=== PATIENT | female | born 1955 | race Caucasian/White ===

== ENCOUNTER 2023-03-17 13:08 | Outpatient (OUT) | payer MEDICARE, OTHER, SELFPAY ==
[2023-03-17 14:21] LABS: Anion Gap 11.4; BUN Creatinine Ratio 23.2; Calcium 9.6 mg/dL (8.5-10.1); Carbon Dioxide 29.8 mmol/L (21.0-32.0); Chloride 97 mmol/L (98-107); Estimated GFR (African America >60 (>=60); Estimated GFR (Non-African Ame >60 (>=60); Glucose 90 mg/dL (74-106); Potassium 4.2 mmol/L (3.5-5.1); Sodium 134 mmol/L (136-145)
== END 2023-03-17 13:09 | disposition home or self-care (01) ==
LOC: LAB 13:12
PROVIDERS: PCP Internal Medicine
DX: I10 Essential (primary) hypertension (principal)
CPT/HCPCS: 36415; 80048

== ENCOUNTER 2023-05-24 16:35 | Outpatient (OUT) | payer MEDICARE, OTHER, SELFPAY ==
[2023-05-24 17:02] LABS: Anion Gap 9.7; BUN Creatinine Ratio 15.6; Calcium 9.8 mg/dL (8.5-10.1); Carbon Dioxide 32.3 mmol/L (21.0-32.0); Chloride 96 mmol/L (98-107); Estimated GFR (African America >60 (>=60); Estimated GFR (Non-African Ame >60 (>=60); Glucose 101 mg/dL (74-106); Sodium 134 mmol/L (136-145)
== END 2023-05-24 16:36 | disposition home or self-care (01) ==
PROVIDERS: PCP Internal Medicine
DX: I10 Essential (primary) hypertension (principal)
CPT/HCPCS: 36415; 80048

== ENCOUNTER 2023-12-26 13:20 | Outpatient (OUT) | payer MEDICARE, OTHER, SELFPAY ==
--- NOTE | 2023-12-26 13:22 | MM_ITS ---
Patient Name: RAÚL SAMANIEGO MR#: [id number] : 1955 Exam Date: 12/26/2023 Ordering Doctor: DR MISHA DINH M.D. RADIOLOGY REPORT PROCEDURE: MM TOMOSYNTHESIS SCREENING BI COMPARISON: MG MAMM SCREEN 3D ADAM CAD, 01/11/2022. MG MAMM SCREEN ADAM W CAD, 09/02/2020. MG MAMM SCREEN ADAM W CAD, 08/14/2019. MG MAMM ADAM SCRN W CAD DIG, 03/27/2013. INDICATIONS: Screening Calculator Name NCI Breast Cancer Risk Assessment Tool 5 Year Breast Cancer Risk 1.90% Lifetime Breast Cancer Risk 6.70% Personal Breast Cancer No Personal Ovarian Cancer No Treatments None Family Cancers Grandmother-maternal with lymphoma cancer at age 45; Grandfather-paternal with stomach cancer at age 50; Brother with skin cancer at age 62; Brother with colon cancer at age 61; Mother with esophageal cancer at age 82. LOCATION: [facility] BREAST COMPOSITION: There are scattered areas of fibroglandular density. FINDINGS: DIAGNOSTIC CATEGORY 2--BENIGN FINDING: RIGHT BREAST: No significant suspicious finding. Scattered benign-appearing lymph nodes are present. No significant change has occurred. LEFT BREAST: No significant suspicious finding. Scattered benign-appearing lymph nodes are present. No significant change has occurred. RECOMMENDATIONS: ROUTINE MAMMOGRAM AND CLINICAL EVALUATION IN 12 MONTHS. PLEASE NOTE: A NORMAL MAMMOGRAM DOES NOT EXCLUDE THE POSSIBILITY OF BREAST CANCER. A CLINICALLY SUSPICIOUS PALPABLE LUMP SHOULD BE BIOPSIED. Dictated by: Johan Garrido M.D. on 12/29/2023 at 13:41 Approved by: Johan Garrido M.D. on 12/29/2023 at 13:51
== END 2023-12-26 13:21 | disposition home or self-care (01) ==
LOC: MAMMO 13:20
PROVIDERS: PCP Internal Medicine; Visit Provider Internal Medicine
DX: Z12.31 Encounter for screening mammogram for malignant neoplasm of breast (principal); Z80.7 Family history of other malignant neoplasms of lymphoid, hematopoietic and related tissues; Z80.0 Family history of malignant neoplasm of digestive organs; Z80.8 Family history of malignant neoplasm of other organs or systems
CPT/HCPCS: 77063; 77067

== ENCOUNTER 2025-01-21 13:43 | Outpatient (OUT) | payer OTHER, SELFPAY ==
--- OUTSIDE RECORDS SUMMARY | 2025-01-16 08:30 | XMS_ITS | Encounter Summary ---
Author Organization [facility] Address [address] [facility] [place] [address] Care Team Providers Care Aviation Engineer Name Role Phone Johnnie Alex MD Primary Care Provider [phone] Johnnie Alex MD Unavailable [phone] Reason for Visit * Reason Comments Medicare Annual Wellness Visit Subsequen t Med Refill Lorazepam,mobic--DM tono Encounter Details Date Type Department Care Team (Late st Contact Info) Description 01/16/2025 8:30 AM EDT Office Visit [facility] [address] [facility] [address] [place] [address] Johnnie Alex MD [address] [facility] 110 [place] [address] Routine general medical examination at health care facility (Primary Dx); ACP (advance care planning); Encounter for screening mammogram for breast cancer; 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 No 04/13/2023 Within the last year, have y ou been humiliated or emotionally abused in other ways by your partner or ex-partner? No Within the last year, have y ou been kicked, hit, slapped, or otherwise physically hurt by your partner or ex-partner? No 04/13/2023 Within the last year, have y ou been raped or forced to have any kind of sexual activity by your partner or ex-partner? No 04/13/2023 Social Connection and Isolat ion Panel [NHANES] Answer Date Recorded In a typical week, how many times do you talk on the phone with family, friends, or neighbors? More than three times a week 04/13/2023 How often do you get togethe r with friends or relatives? Three times a week 04/13/2023 How often do you attend chur or catholic services? Never 04/13/2023 Do you belong to any clubs o r organizations such as spiritism groups, unions, fraternal or athletic groups, or school groups? Yes 04/13/2023 How often do you attend meet ings of the clubs or organizations you belong to? More than 4 times per year 04/13/2023 Are you , , di vorced, , never , or living with a partner? 04/13/2023 AUDIT-C Answer Date Recorded Q1: How often do you have a drink containing alc ohol? 2-4 times a month 04/13/2023 Q2: How many drinks containi ng alcohol do you have on a typical day when you are drinking? 1 or 2 04/13/2023 Q3: How often do you have si x or more drinks on one occasion? Never 04/13/2023 Overall Financial Resource Strain (CARDIA) Answe r Date Recorded How hard is it for you to pa y for the very basics like food, housing, medical care, and heating? Not hard at all 04/13/2023 PHQ-2 Answer Date Recorded Patient Health Questionnaire-2 Score 0 01/16/2025 [facility] [place] of Occupat ional Health - Occupational Stress Questionnaire Answer Date Recorded Do you feel stress - tense, restless, nervous, or anxious, or unable to sleep at night because your mind is troubled all the time - these days? Only a little 04/13/2023 Exercise Vital Sign Answer Date Recorde d On average, how many days pe r week do you engage in moderate to strenuous exercise (like a brisk walk)? 4 days 04/13/2023 On average, how many minutes do you engage in exercise at this level? 40 min 04/13/2023 Hunger Vital Sign Answer Date Recorded Within the past 12 months, y ou worried that your food would run out before you got the money to buy more. Never true 04/13/20 23 Within the past 12 months, t he food you bought just didn't last and you didn't have money to get more. Never true 04/13/2023 PRAPARE - Transportation Answer Date Re corded In the past 12 months, has l ack of transportation kept you from medical appointments or from getting medications? No 03/26 In the past 12 months, has l ack of transportation kept you from meetings, work, or from getting things needed for daily living? No 04/13/2023 Housing Stability Vital Sign Answer Sebastian e Recorded In the last 12 months, was t here a time when you were not able to pay the mortgage or rent on time? No 04/13/2023 In the last 12 months, how many places have you lived? 1 04/13/2023 In the last 12 months, was t here a time when you did not have a steady place to sleep or slept in a residential (including now)? No 04/13/2023 Comments Unknown Sex and Gender Information Value Date Recorded Sex Assigned at Not on file Legal Sex Female 6:56 PM EDT Gender Identity Not on file Sexual Orientation Not on file documented as of this encounter Last Filed Vital Signs Vital Sign Reading Time Taken Comments Blood Pressure 128/76 01/16/2025 8:22 AM EDT Pulse 60 01/16/2025 8:22 AM EDT Temperature - - Respiratory Rate - - Oxygen Saturation 98% 01/16/2025 8:22 AM EDT Inhaled Oxygen Concentration - - Weight 77.1 kg (170 lb) 01/16/2025 8:22 AM EDT Height 170.2 cm (5' 7 ) 01/16/2025 8:22 AM EDT Body Mass Index 26.63 01/16/2025 8:22 AM EDT documented in this encounter Functional Status * Over the past 2 weeks, how often have you been bothered by any of the following problems? Question Answer Date of Assessment Author Little interest or pleasure in doing things Not at all 01/16/2025 8:00 AM Kamar Little LP N Feeling down, depressed, or hopeless Not at all 01/16/2025 8:00 AM Kamar Little LP N Patient Health Questionnaire -2 Score 0 01/16/2025 8:00 AM Kamar Little LP N documented as of this encounter Progress Notes * Johnnie Alex MD - 01/16/2025 8:30 AM EDT Images from the original note were not included. HPI Med Refill Additional comments: Lorazepam,mobic--DM tono Last edited by Kamar Roger LPN on 01/16/2025 8:38 AM. Subjective : Chief Complaint: Savi Love is an 70 y.o. female here for an annual wellness visit. I have reviewed and reconciled the history and medication list with the patient today. Current Outpatient Medications Medication Sig Dispense Refill aspirin 81 MG EC tablet Take 81 mg by mouth in the morning. atenolol (Tenormin) 50 MG tablet TAKE 1 TABLET BY MOUTH ONCE DAILY 90 tablet 3 atorvastatin (Lipitor) 20 MG tablet TAKE 1 TABLET BY MOUTH DAILY 30 tablet 11 B Complex Vitamins (vitamin B complex) tablet Take by mouth Daily. calcium citrate 600 mg and vitamin D3 (Citrical & Minerals + Vit D) 600-200 MG- UNIT tablet Take1 tablet by mouth in the morning. Cranberry 500 MG tablet Daily. losartan (Cozaar) 100 MG tablet Take 100 mg by mouth in the morning. magnesium oxide (Mag-Ox) 400 mg tablet Take 400 mg by mouth in the morning and 400 mg before bedtime. melatonin 10 MG tablet Take 10 mg by mouth as needed at bedtime Multiple Vitamins-Minerals (Multivitamin Women 50+) tablet Take 1 tablet by mouth Daily potassium chloride CR (Klor-Con M20) 20 MEQ ER tablet Take 2 tablets by mouth Daily triamterene-hydrochlorothiazide (Maxzide) 75-50 MG tablet Take 1 tablet by mouth in the morning. zinc gluconate 50 MG tablet Take by mouth Daily. LORazepam (Ativan) 0.5 MG tablet Take 1 tablet (0.5 mg) by mouth Daily as needed for anxiety 30 tablet 2 meloxicam (Mobic) 15 MG tablet Take 1 tablet (15 mg) by mouth in the morning. 90 tablet 1 No current facility-administered medications for this visit. Review of Systems List of current healthcare providers: Patient Care Team: Johnnie Alex MD as PCP - General (Internal Medicine) Johnnie Alex MD as PCP - [facility]oted Medicare Annual Visit Over the past 2 weeks, how often have you been bothered by any of the following problems? Little interest or pleasure in doing things: Not at all Feeling down, depressed, or hopeless: Not at all Patient Health Questionnaire-2 Score: 0 Randolph Fall Risk History of Falling, Immediate or Within 3 Months: No Secondary Diagnosis: No Ambulatory Aid: Walks without aid/bedrest/nurse assist Health Risk Assessment Form Do you need help eating, bathing, using the toilet, dressing, or getting around your home?: No Can you prepare your own meals?: Yes Can you do your own housework without help?: Yes Can you shop for groceries or clothes without help?: Yes Do you exercise for about 20 minutes 3 or more days a week?: Yes How confident are you that you can control and manage most of your health problems?: Very confident Can you mange your money, credit cards and accounts, pay bills and taxes?: Yes Cognitive Screening Three Word Registration: Apple, Watch, Shanna Clock Drawing: Normal Clock - 2 Three Word Recall: All 3 words correct - 3 Total Score (0-5 Points): 5 Pain Assessment Pain Score: 3 Advance Care Planning Do you have a living will?: Yes Do you have a medical power of incinerator plant laborer?: Yes Who is your medical power of incinerator plant laborer?: Objective : BP 128/76 Pulse 60 Ht 5' 7 Wt 170 lb SpO2 98% BMI 26.63 kg/m?? No results found. Physical Exam Constitutional: Appearance: Normal appearance. HENT: Head: Normocephalic and atraumatic. Cardiovascular: Rate and Rhythm: Normal rate and regular rhythm. Heart sounds: Normal heart sounds. No murmur heard. Pulmonary: Effort: Pulmonary effort is normal. Breath sounds: Normal breath sounds. No wheezing, rhonchi or rales. Abdominal: General: Abdomen is flat. Bowel sounds are normal. There is no distension. Tenderness: There is no abdominal tenderness. Musculoskeletal: Right lower leg: No edema. Left lower leg: No edema. Neurological: Mental Status: She is alert. Psychiatric: Mood and Affect: Mood normal. Thought Content: Thought content normal. 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 Orders Placed This Encounter Procedures TSH W/REFLEX TO FT4 Standing Status: Future Number of Occurrences: 1 Expected Date: 01/16/2025 Expiration Date: 01/16/2026 Print requisition?: No Lipid panel Standing Status: Future Number of Occurrences: 1 Expected Date: 01/16/2025 Expiration Date: 01/16/2026 Electronically signed by Johnnie Alex MD on January 16, 2025 documented in this encounter Miscellaneous Notes * Addendum Note - Kamar Roger LPN - 01/16/2025 8:30 AM EDTAddended by: KAMAR ROGER on: 01/16/2025 09:24 AM Modules accepted: Orders documented in this encounter Plan of Treatment Upcoming Encounters Date Type Department Care Team (Late st Contact Info) Description 01/16/2026 1:00 PM EDT Office Visit [facility] [address] [facility] 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) Expected: 01/16/2025 (Approximate), Expires: 01/16/2026 Lipid panel Lab Routine Pure hypercholesterolemia Expected: 01/16/2025 (Approximate), Expires: 01/16/2026 Bilateral screening mammogram Imaging Routine Encounter for screening mammogram for breast cancer Expected: 01/16/2025 (Approximate), Expires: 03/18/2026 documented as of this encounter Visit Diagnoses Diagnosis Routine general medical examination at health care facility- Primary Routine general medical examination at a health care facility ACP (advance care planning) Other specified counseling Encounter for screening mammogram for breast cancer 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) Pure hypercholesterolemia Pure hypercholesterolemia Anxiety Anxiety state, unspecified Osteoarthritis of both knees, unspecified osteoarthritis type documented in this encounter Additional Health Concerns Assessment Noted Time PHQ-9 Depression Total Score: 0 01/16/20 24 8:00 AM EDT documented as of this encounter Care Teams Aviation Engineer Relationship Specialty Start Date End Date Johnnie Alex MD [address] [facility] [address] [place] [address] PCP - General Internal Medicine 01/10/23 Johnnie Alex MD [address] [facility] [address] [place] [address] PCP - Devoted 07/25/24 documented as of this encounter
--- OUTSIDE RECORDS SUMMARY | 2025-01-21 13:45 | XMS_ITS | Encounter Summary ---
Author Organization [facility] Address [address] [place] [address] Care Team Providers Care Cattyman Name Role Phone Johnnie Alex MD Unavailable [phone] Johnnie Alex MD Primary Care Provider [phone] Tuesday, Shanti RICKETTS Unavailable [phone] Johnnie Alex MD Unavailable [phone] Johnnie Alex MD Unavailable [phone] Encounter Details Date Type Department Care Team (Late st Contact Info) Description 12/28/2022 Abstract [facility] [address] [facility] [address] [place] [phone] Johnnie Alex MD [address] [facility] 110 [place] [address] Social History Tobacco Use Types Packs/Day Years Used Date Smoking Tobacco: Never Assessed Comments Unknown Sex and Gender Information Value Date Recorded Sex Assigned at Not on file Legal Sex Female 6:56 PM EDT Gender Identity Not on file Sexual Orientation Not on file documented as of this encounter Plan of Treatment Upcoming Encounters Date Type Department Care Team (Late st Contact Info) Description 01/16/2026 1:00 PM EDT Office Visit [facility] [address] [facility] [address] [place] [address] Johnnie Alex MD [address] [facility] 110 [place] [address] documented as of this encounter Visit Diagnoses Not on filedocumented in this encounter Care Teams Cattyman Relationship Specialty Start Date End Date Johnnie Alex MD [address] [facility] [address] [place] [address] PCP - ACO Reach 12/16/22 08/30/24 Johnnie Alex MD [address] [facility] [address] [place] [address] PCP - General Internal Medicine 01/10/23 Johnnie Alex MD [address] [facility] [address] [place] [address] PCP - Devoted 07/25/24 Johnnie Alex MD [address] [facility] [address] [place] [address] PCP - ACO Reach 09/07/24 10/25/24Tuesday, JAMARCUS Moser [address] [place] [address] Licensed Practical Nurse Family Medicine 01/16/24 02/14/24 documented as of this encounter
--- OUTSIDE RECORDS SUMMARY | 2025-01-21 13:45 | XMS_ITS | Encounter Summary ---
Author Organization [facility] Address [address] [facility] [place] [address] Care Team Providers Care Front Attendant Name Role Phone Johnnie Alex MD Primary Care Provider [phone] Johnnie Alex MD Unavailable [phone] Encounter Details Date Type Department Care Team (Late st Contact Info) Description 01/16/2025 Bamboo flowsheet [facility] [address] [facility] [address] [place] [id number] Johnnie Alex MD [address] [facility] [address] [place] [address] Social History Tobacco Use Types Packs/Day Years [...] 04/13/2023 How often do you attend chur ch or mormonism services? Never 04/13/2023 Do you belong to any clubs o r organizations such as restoration groups, unions, fraternal or athletic groups, or [...] Recorded Patient Health Questionnaire-2 Score 0 01/16/2025 [facility] of Occupat ional Health - Occupational Stress [...] place to sleep or slept in a fdc (including now)? No 04/13/2023 Comments Unknown Sex and Gender Information Value Date Recorded Sex Assigned at Not on file Legal Sex Female 6:56 PM EDT Gender Identity Not on file Sexual Orientation Not on file documented as of this encounter Functional Status * Over the past 2 weeks, how often have you been bothered by any of the following problems? Question Answer Date of Assessment Author Little interest or pleasure in doing things Not at all 01/16/2025 8:00 AM EDT Isis Plasencia LP N Feeling down, depressed, or hopeless Not at all 01/16/2025 8:00 AM EDT Isis Plasencia LP N Patient Health Questionnaire -2 Score 0 01/16/2025 8:00 AM EDT Isis Plasencia LP N documented as of this encounter Plan of Treatment Upcoming Encounters Date Type Department Care Team (Late st Contact Info) Description 01/16/2026 1:00 PM EDT Office Visit [facility] 112 [facility] 110 [place] [address] Johnnie Alex MD 112 [facility] 110 [place] [address] documented as of this encounter Visit Diagnoses Not on filedocumented in this encounter Additional Health Concerns Assessment Noted Time PHQ-9 Depression Total Score: 0 01/16/20 24 8:00 AM EDT documented as of this encounter Care Teams Front Attendant Relationship Specialty Start Date End Date Johnnie Alex MD [address] [facility] 110 [place] [address] PCP - General Internal Medicine 01/10/23 Johnnie Alex MD [address] [facility] 110 [place] [address] PCP - Devoted 07/25/24 documented as of this encounter
--- OUTSIDE RECORDS SUMMARY | 2025-01-21 13:45 | XMS_ITS | Encounter Summary ---
Author Organization [facility] Address [address] [facility] [place] [address] Care Team Providers Care Garden Consultant Name Role Phone Johnnie Alex MD Unavailable [phone] Johnnie Alex MD Primary Care Provider [phone] Johnnie Alex MD Unavailable [phone] Johnnie Alex MD Unavailable [phone] Encounter Details Date Type Department Care Team (Late st Contact Info) Description 05/24/2024 Abstract [facility] [address] [facility] 110 [place] [address] Johnnie Alex MD 112 [facility] 110 [place] [address] Social History Tobacco Use Types Packs/Day Years [...] often do you attend chur ch or muslim services? Never 04/13/2023 Do you belong to any clubs o r organizations such as confucianist groups, unions, fraternal or athletic groups, or [...] Date Recorded Patient Health Questionnaire-2 Score 0 01/16/2024 [facility] - Occupational Stress Questionnaire Answer Date [...] money to buy more. Never true 04/13/20 Within the past 12 months, t he [...] place to sleep or slept in a snf (including now)? No 04/13/2023 Comments Unknown Sex and Gender Information Value Date Recorded Sex Assigned at Not on file Legal Sex Female 6:56 PM EDT Gender Identity Not on file Sexual Orientation Not on file documented as of this encounter Plan of Treatment Upcoming Encounters Date Type Department Care Team (Late st Contact Info) Description 01/16/2026 1:00 PM EDT Office Visit [facility] [address] [facility] 110 [place] [address] Johnnie Alex MD [address] [facility] [address] [place] [address] documented as of this encounter Visit Diagnoses Not on filedocumented in this encounter Additional Health Concerns Assessment Noted Time PHQ-9 Depression Total Score: 0 01/16/20 8:00 AM EDT documented as of this encounter Care Teams Garden Consultant Relationship Specialty Start Date End Date Johnnie Alex MD [address] [facility] [address] [place] [address] PCP - ACO Reach 12/16/22 08/30/24 Johnnie Alex MD [address] [facility] [address] [place] [address] PCP - General Internal Medicine 01/10/23 Johnnie Alex MD [address] [facility] [address] [place] [address] PCP - Devoted 07/25/24 Johnnie Alex MD [address] [facility] [address] PCP - ACO Reach 09/07/24 10/25/24 documented as of this encounter
--- OUTSIDE RECORDS SUMMARY | 2025-01-21 13:45 | XMS_ITS | Encounter Summary ---
Author Organization [facility] Address [address] [facility] [place] [address] Care Team Providers Care Bark Grinder Name Role Phone Johnnie Alex MD Unavailable [phone] Johnnie Alex MD Primary Care Provider Tuesday, Shanti RICKETTS Unavailable [phone] Johnnie Alex MD Unavailable [phone] Johnnie Alex MD Unavailable [phone] Encounter Details Date Type Department Care Team (Late st Contact Info) Description 12/27/2022 Abstract [facility] [address] [facility] [address] [place] [phone] Johnnie Alex MD [address] [facility] 110 [place] [address] Social History Tobacco Use Types Packs/Day Years [...] Visit [facility] [address] [facility] [address] [place] [address] Johnnie Alex MD [address] [facility] 110 [place] [address] documented as of this encounter Visit Diagnoses Not on filedocumented in this encounter Care Teams Bark Grinder Relationship Specialty Start Date End Date Johnnie Alex MD [address] [facility] [address] [place] [address] PCP - ACO Reach 12/16/22 08/30/24 Johnnie Alex MD [address] [facility] [address] [place] [address] PCP - General Internal Medicine 01/10/23 Johnnie Alex MD [address] [facility] [address] [place] [address] PCP - Devoted 07/25/24 Johnnie Alex MD [address] [facility] [address] [place] [address] PCP - ACO Reach 09/07/24 10/25/24Tuesday, JAMARCUS Moser [address] [place] [address] Licensed Practical Nurse Family Medicine 01/16/24 02/14/24 documented as of this encounter
--- OUTSIDE RECORDS SUMMARY | 2025-01-21 13:45 | XMS_ITS | Clinical Summary ---
Author Organization [facility] Address [address] [place] [address] Phone Care Team Providers Care Rn Burn Name Role Phone Johnnie Alex MD Primary Care Provider [phone] Allergies Active Allergy Reactions Criticality Noted Date Comments Adhesive Tape-Silicones Dermatitis Medium 05/30/2023 Sulfa (Sulfonamide Antibiotics) Hives 09/2022 Medications aspirin 81 mg EC tablet Take 1 tablet (81 mg) by mouth once daily. Active calcium carbonate (Oscal) 500 mg calcium (1,250 mg) tablet Take 1 tablet (1,250 mg) by mouth 2 times daily (morning and late afternoon). Active cranberry 500 mg capsule Take 1 capsule by mouth every other day. Active LORazepam (Ativan) 0.5 mg tablet Take 1 tablet (0.5 mg) by mouth once daily as needed for anxiety. Active melatonin 10 mg capsule Take 1 capsule (10 mg) by mouth early in the morning.. Active MULTIVITAMIN ORAL Take 1 tablet by mouth early in the morning.. Active acetaminophen (Tylenol) 500 mg tablet Take as directed Active cyanocobalamin (Vitamin B-12) 1,000 mcg tablet Take 1 tablet (1,000 mcg) by mouth once daily. Active cholecalciferol (Vitamin D3) 50 mcg (2,000 unit) capsule Take 1 capsule (50 mcg) by mouth once daily. Active zinc gluconate 50 mg tablet Take 1 tablet (50 mg) by mouth once daily. Active atenolol (Tenormin) 50 mg tabletIndication s:Hypertension, unspecified type Take 1 tablet (50 mg) by mouth once daily. 90 tablet 3 11/06/202 3 Active atorvastatin (Lipitor) 20 mg tablet Take 1 tablet (20 mg) by mouth once daily. Active triamterene-hydr ochlorothiazid (Maxzide) 75-50 mg tabletIndication s:Hypertension, unspecified type Take 1 tablet by mouth once daily. 90 tablet 3 4 05/24/20 Active potassium chloride CR 20 mEq ER tabletIndication s:History of atrial fibrillation,Hyp ertension, unspecified type Take 2 tablets (40 mEq) by mouth once daily. Do not crush or chew. 180 tablet 3 4 05/24/20 Active magnesium oxide (Mag-Ox) 400 mg tabletIndication s:History of atrial fibrillation,Hyp ertension, unspecified type Take 1 tablet (400 mg) by mouth 2 times a day. 180 tablet 3 4 05/24/20 Active losartan (Cozaar) 100 mg tabletIndication s:Hypertension, unspecified type Take 1 tablet (100 mg) by mouth once daily. 90 tablet 3 4 05/24/20 Active Active Problems Problem Noted Date Diagnosed Date Bradycardia 05/27/2023 First degree AV block 05/27/2023 Former smoker 05/27/2023 High risk medication use 05/27/2023 History of atrial fibrillation 05/27/2023 Hypertension 05/27/2023 Hypokalemia 05/27/2023 Medication course changed 05/27/2023 BMI 29.0-29.9,adult 05/27/2023 S/P lobectomy of lung 05/27/2023 Immunizations Immunization Administration Dates Next Due DTP 05/12/2020 Flu vaccine (IIV4), preserva tive free *Check age/dose* 05/05/2020,05/11/2019,05/23/2018 Flu vaccine, quadrivalent, h igh-dose, preservative free, age 65y+ (FLUZONE) 04/10/2023,05/19/2022 Flu vaccine, quadrivalent, n o egg protein, age 6 month or greater (FLUCELVAX) 07/22/2021 Flu vaccine, trivalent, pres ervative free, HIGH-DOSE, age 65y+ (Fluzone) 04/25/2017 Pneumococcal Conjugate PCV 7 11/07/2020 Pneumococcal conjugate vacci ne, 13-valent (PREVNAR 13) 06/10/2014 Pneumococcal conjugate vacci ne, 20-valent (PREVNAR 20) 05/19/2022,06/24/2021 Pneumococcal polysaccharide vaccine, 23-valent, age 2 years and older (PNEUMOVAX 23) 04/25/2006 Zoster vaccine, recombinant, adult (SHINGRIX) 05/22/2023,02/18/2023 Family History Medical History Relation Name Comments Cirrhosis Brother Diabetes Brother status post angioplasty Brother CABG (coronary artery bypass surgery) Father Diabetes Father Hypertension Father arteriosclerotic cardiovascular disease Father Diabetes Mother Esophageal cancer Mother Hypertension Mother Relation Name Status Comments Brother Father Mother Social History Tobacco Use Types Packs/Day Years Used Date Smoking Tobacco: Former Cigarettes Smokeless Tobacco: Never Tobacco Cessation:Counseling Given: Not Answered Alcohol Use Standard Drinks/Week Comments Yes 1 (1 standard drink = 0.6 oz pur e alcohol) occasionally with dinner Comments Unknown Sex and Gender Information Value Date Recorded Sex Assigned at Not on file Legal Sex Female 2:18 PM EDT Gender Identity Not on file Sexual Orientation Not on file Last Filed Vital Signs Vital Sign Reading Time Taken Comments Blood Pressure 120/88 05/24/2024 11:19 AM EDT Pulse 62 05/24/2024 11:19 AM EDT Temperature - - Respiratory Rate - - Oxygen Saturation - - Inhaled Oxygen Concentration - - Weight 84.4 kg (186 lb) 05/24/2024 11:19 AM EDT Height 170.2 cm (5' 7 ) 05/24/2024 11:19 AM EDT Body Mass Index 29.13 05/24/2024 11:19 AM EDT Plan of Treatment Upcoming Encounters Date Type Department Care Team (Late st Contact Info) Description 05/27/2025 12:30 PM EST Office Visit [facility] [address] [facility] [address] [place] [address] Felicia Silvestre MD [address] [facility] [address] [place] [address] Health Maintenance Due Date Last Done Comments CT Colonography 1955 FIT-DNA (Cologuard) 1955 FIT 1955 Medicare Annual Wellness Visit (AWV) 1955 Sigmoidoscopy 1955 Diabetes Screening 1975 Hepatitis C Screening 1975 Mammogram 01/11/2023 01/11/2022, 02/0 03/2021, 08/01/2018 COVID-19 Vaccine ( season) 2024 07/22/2021, 10/24/2020, 10/03/2020 Influenza Vaccine (Season Ended) 2025 04/10/2023, 05/19/2022, 07/22/2021, Additional history exists Colonoscopy 03/09/2027 03/09/2017 Colorectal Cancer Screening 03/09/2027 Lipid Panel 02/28/2029 02/29/2024 DTaP/Tdap/Td Vaccines (2 - Tdap) 05/12/2030 05/12/2020 RSV High Risk: (Elderly (60+) or Population) (1 - 1-dose 75+ series) 01/07/2032 Pneumococcal Vaccine Completed 05/19/2022, 06/24/2021, 11/07/2020, Additional history exists Zoster Vaccines Completed 05/22/2023, 02/18/2023 Bone Density Scan Completed 01/23/2024, 12/25/2021 HIB Vaccines Aged Out No longer eligi ble based on patient's age to complete this topic HPV Vaccines (No Doses Required) Completed Hepatitis A Vaccines Aged Out No long er eligible based on patient's age to complete this topic Hepatitis B Vaccines Aged Out No long er eligible based on patient's age to complete this topic IPV Vaccines Aged Out No longer eligi ble based on patient's age to complete this topic Meningococcal Vaccine Aged Out No ira javier eligible based on patient's age to complete this topic Rotavirus Vaccines Aged Out No longer eligible based on patient's age to complete this topic Insurance MEDICARE PART A AND B Member Subscriber Plan / Payer (Ef fective 2021-Present) Name:Savi Love Member ID:[id number] Relation to Subscriber:Self Name:Savi Love Subscriber ID:[id number] Payer ID:Not on file Group ID:Not on file Type:Not on file Address: [address] [place] [address] MEDICARE PART A AND B Member Subscriber Plan / Payer ( fective 2021-Present) Name:Savi Love Member ID:[id number] Relation to Subscriber:Self Name:Savi Love Subscriber ID:[id number] Payer ID:Not on file Group ID:Not on file Type:Not on file Address: [address] Care Teams Rn Burn Relationship Specialty Start Date End Date Johnnie Alex MD [address] [place] [address] PCP - General 6/19/23
--- OUTSIDE RECORDS SUMMARY | 2025-01-21 13:45 | XMS_ITS | Encounter Summary ---
Author Organization [facility] Address [address] [facility] [place] [address] Care Team Providers Care Reconnaissance Man Name Role Phone Johnnie Alex MD Unavailable [phone] Johnnie Alex MD Primary Care Provider [phone] Johnnie Alex MD Unavailable [phone] Johnnie lAex MD Unavailable [phone] Encounter Details Date Type Department Care Team (Late st Contact Info) Description 08/07/2024 Abstract [facility] [address] [facility] [address] [place] [address] Johnnie Alex MD 112 [facility] [address] [place] [address] Social History Tobacco Use Types Packs/Day Years [...] often do you attend chur ch or pentecostalism services? Never 04/13/2023 Do you belong to any clubs o r organizations such as buddhist groups, unions, fraternal or athletic groups, or [...] Recorded Patient Health Questionnaire-2 Score 0 01/16/2024 [facility] - Occupational Stress Questionnaire Answer Date [...] 01/16/2026 1:00 PM EDT Office Visit [facility] [address] [facility] [address] [place] [address] Johnnie Alex MD [address] [facility] [address] [place] [address] documented as of this encounter Visit Diagnoses Not on filedocumented in this encounter Additional Health Concerns Assessment Noted Time PHQ-9 Depression Total Score: 0 01/16/20 8:00 AM EDT documented as of this encounter Care Teams Reconnaissance Man Relationship Specialty Start Date End Date Johnnie Alex MD [address] [facility] [address] [place] [address] PCP - ACO Reach 12/16/22 08/30/24 Johnnie Alex MD [address] [facility] [address] [place] [address] PCP - General Internal Medicine 01/10/23 Johnnie Alex MD [address] [facility] [address] [place] [address] PCP - Devoted 07/25/24 Johnnie Alex MD [address] [facility] [place] [address] PCP - ACO Reach 09/07/24 10/25/24 documented as of this encounter
--- OUTSIDE RECORDS SUMMARY | 2025-01-21 13:45 | XMS_ITS | Encounter Summary ---
Author Organization [facility] Address [address] [place] [address] Care Team Providers Care Torch Cutter Name Role Phone Johnnie Alex MD Unavailable [phone] Johnnie Alex MD Primary Care Provider [phone] Johnnie Alex MD Unavailable [phone] Johnnie Alex MD Unavailable [phone] Encounter Details Date Type Department Care Team (Late st Contact Info) Description 05/28/2024 External Result Encounter [facility] External Department Unsolicited Zaid Amos, DO [address] [place] [address] Social History Tobacco Use Types Packs/Day Years [...] often do you attend chur ch or adventism services? Never 04/13/2023 Do you belong to any clubs o r organizations such as presybeterian groups, unions, fraternal or athletic groups, or [...] Recorded Patient Health Questionnaire-2 Score 0 01/16/2024 [facility] Answer Date Recorded [...] place to sleep or slept in a skilled nursing (including now)? No 04/13/2023 Comments Unknown Sex and Gender Information Value Date Recorded Sex Assigned at Not on file Legal Sex Female 6:56 PM EDT Gender Identity Not on file Sexual Orientation Not on file documented as of this encounter Plan of Treatment Upcoming Encounters Date Type Department Care Team (Late st Contact Info) Description 01/16/2026 1:00 PM EDT Office Visit [facility] [address] [address] Johnnie Alex MD [address] [address] documented as of this encounter Procedures Procedure Name Priority Date/Time Associated Diagnosis Comments CT ABDOMEN PELVIS W IV CONTRAST 05/28/2024 12:33 PM EST documented in this encounter Results * CT abdomen pelvis w IV contrast (05/28/2024 12:33 PM EST) Anatomical Region Laterality Modality Body, Pelvis, Abdomen Computed T omography 05/28/2024 12:3 3 PM EST Impressions 05/28/2024 12:[address] evidence of tumor recurrence or metastatic disease within the chest, abdomen or pelvis. Stable cyst pancreatic body. Impression dictated by: Klaus Gunn Jr., D.OYoni05/28/2024 12:52 PM Dictation Location: [place] [address] Transcribed By: [facility] 05/28/24 1252 Dictated By: Klaus Gunn Jr, DO 05/28/24 1233 Signed By: <Electronically signed by Klaus Gunn Jr, DO in OV> 05/28/24 1252 Narrative 05/28/2024 12:54 PM [facility] [place] [address] [place] [address] CT Scan Report Signed Patient: Savi Love MR#: [id number] : 1955 Acct:[id number] Age/Sex: 69 / F ADM Date: 05/28/24 Loc: Room: Type: [facility] Attending Dr: Zaid Amos II, DO Copies to: Zaid Amos II, DO Ordering Provider: Zaid Amos II, DO Date of Service: 05/28/24 CT/CT abdomen pelvis w con: 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 COMPARISON: CT chest, abdomen and pelvis 11/29/2023. TECHNIQUE: TECHNIQUE: Spiral images were obtained through the chest, abdomen and pelvis following the administration of IV contrast. This CT exam was performed using one or more following dose reduction techniques: Automated exposure control, adjustment of the mA and/or kV according to patient size, or use of iterative reconstruction technique. FINDINGS: CT chest: Mediastinum:Thoracic aorta appears normal in caliber. Pulmonary trunk appears nondilated. No pleural effusion or lymphadenopathy. The esophagus is grossly unremarkable. Lungs:Post surgical changes involving the right lung. Mild lung scarring. No consolidation pneumothorax pleural effusion or nodule. Soft tissues/Bones: Soft tissues surrounding the chest wall demonstrate no acute findings. Osseous structures demonstrate degenerative change. CT abdomen and pelvis: Organs:Liver and spleen demonstrate granulomatous changes. Gallbladder portal vein adrenal glands appear unremarkable. 14 mm cyst involving the pancreatic body, unchanged. No enhancing renal mass or hydronephrosis. Abdominal aorta appears normal in caliber. GI: Stomach is grossly unremarkable. Small bowel appears nondilated. Appendix is normal. No acute colonic abnormality. Left colon diverticulosis.[ Pelvis:[Uterus has been removed. No adnexal mass. Urinary bladder is grossly unremarkable.] Peritoneum/Retroperitoneum:No free air or free fluid or lymphadenopathy.[ Abd wall/Bones:Abdominal wall demonstrates no acute findings. Osseous structures demonstrate degenerative change.[ CT/CT chest w con Procedure Note Radiology, Radiologist, MD - 05/28/2024 [facility] [place] [address] [place] [address] CT Scan Report Signed Patient: Savi Love WMR#: [id number] : 7Acct:[id number] Age/Sex: 69 / FADM Date: 05/28/24 Loc: [facility] Att[facility] Dr: Zaid Amos II DO Copies to: Zaid Amos II, DO Ordering Provider: Zaid Amos II, DO Date of Service: 05/28/24 CT/CT abdomen pelvis w con: C7A.090 - Malignantcarcinoid tumor of the bronchus and lung ([id number]) CT/CT chest w con: 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 COMPARISON: CT chest, abdomen and pelvis 11/29/2023. TECHNIQUE: TECHNIQUE: Spiral images were obtained through the chest,abdomen and pelvis following the administration of IV contrast. This CT exam was performed using oneor more following dose reduction techniques: Automated exposure control, adjustment of the mAand/or kV according to patient size, or use of iterative reconstruction technique. FINDINGS: CT chest: Mediastinum:Thoracic aorta appears normal in caliber. Pulmonary trunkappears nondilated. No pleural effusion or lymphadenopathy. The esophagus is grosslyunremarkable. Lungs:Post surgical changes involving the right lung. Mild lung scarring.No consolidation pneumothorax pleural effusion or nodule. Soft tissues/Bones: Soft tissues surrounding the chest wall demonstrate noacute findings. Osseous structures demonstrate degenerative change. CT abdomen and pelvis: Organs:Liver and spleen demonstrate granulomatous changes. Gallbladderportal vein adrenal glands appear unremarkable. 14 mm cyst involving the pancreatic body, unchanged.No enhancing renal mass or hydronephrosis. Abdominal aorta appears normal in caliber. GI: Stomach is grossly unremarkable. Small bowel appears nondilated.Appendix is normal. No acute colonic abnormality. Left colon diverticulosis.[ Pelvis:[Uterus has been removed. No adnexal mass. Urinary bladder isgrossly unremarkable.] Peritoneum/Retroperitoneum:No free air or free fluid or lymphadenopathy.[ Abd wall/Bones:Abdominal wall demonstrates no acute findings. Osseousstructures demonstrate degenerative change.[ CT/CT chest w con IMPRESSION: No CT evidence of tumor recurrence or metastatic disease within thechest, abdomen or pelvis. Stable cyst pancreatic body. Impression dictated by: Klaus Gunn Jr., D.O.05/28/2024 12:52 PM Dictation Location: [place] [address] Transcribed By: [facility] 05/28/24 1252 Dictated By: Klaus Gunn Jr, DO 05/28/24 1233 Signed By: <Electronically signed by Klaus Gunn Jr, DO inOV> 05/28/24 1252 Zaid Amos DO IMG CT PROCEDURES Final R esult documented in this encounter Visit Diagnoses Not on filedocumented in this encounter Additional Health Concerns Assessment Noted Time PHQ-9 Depression Total Score: 0 01/16/20 24 8:00 AM EDT documented as of this encounter Care Teams Torch Cutter Relationship Specialty Start Date End Date Johnnie Alex MD [address] [facility] 110 [place] [address] PCP - ACO Reach 12/16/22 08/30/24 Johnnie Alex MD [address] [facility] [address] [place] [address] PCP - General Internal Medicine 01/10/23 Johnnie Alex MD [address] [facility] [address] [place] [address] PCP - Devoted 07/25/24 Johnnie Alex MD [address] [facility] [address] [place] [address] PCP - ACO Reach 09/07/24 10/25/24 documented as of this encounter
--- OUTSIDE RECORDS SUMMARY | 2025-01-21 13:45 | XMS_ITS | Encounter Summary ---
Author Organization [facility] Address [address] [facility] [place] [address] Care Team Providers Care Talent Solutions Manager Name Role Phone Johnnie Alex MD Unavailable [phone] Johnnie Alex MD Primary Care Provider [phone] Johnnie Alex MD Unavailable [phone] Johnnie Alex MD Unavailable [phone] Encounter Details Date Type Department Care Team (Late st Contact Info) Description 05/08/2024 Abstract [facility] [address] [facility] [address] [place] [address] Johnnie Alex MD 112 [facility] [address] [place] [address] Social History Tobacco Use Types Packs/Day Years [...] often do you attend chur ch or yazidism services? Never 04/13/2023 Do you belong to any clubs o r organizations such as pentecostal groups, unions, fraternal or athletic groups, or [...] Recorded Patient Health Questionnaire-2 Score 0 01/16/2024 [facility] - Occupational Stress Questionnaire Answer Date [...] place to sleep or slept in a detention (including now)? No 04/13/2023 Comments Unknown Sex and Gender Information Value Date Recorded Sex Assigned at Not on file Legal Sex Female 6:56 PM EDT Gender Identity Not on file Sexual Orientation Not on file documented as of this encounter Plan of Treatment Upcoming Encounters Date Type Department Care Team (Late st Contact Info) Description 01/16/2026 1:00 PM EDT Office Visit [facility] [address] [facility] [address] [place] [address] Johnnie Alex MD [address] [facility] 110 [place] [address] documented as of this encounter Visit Diagnoses Not on filedocumented in this encounter Additional Health Concerns Assessment Noted Time PHQ-9 Depression Total Score: 0 01/16/20 8:00 AM EDT documented as of this encounter Care Teams Talent Solutions Manager Relationship Specialty Start Date End Date Johnnie Alex MD [address] [facility] [address] [place] [address] PCP - ACO Reach 12/16/22 08/30/24 Johnnie Alex MD [address] [facility] [address] [place] [address] PCP - General Internal Medicine 01/10/23 Johnnie Alex MD [address] [facility] [address] [place] [address] PCP - Devoted 07/25/24 Johnnie Alex MD [address] [facility] [place] [address] PCP - ACO Reach 09/07/24 10/25/24 documented as of this encounter
--- OUTSIDE RECORDS SUMMARY | 2025-01-21 13:45 | XMS_ITS | Encounter Summary ---
Author Organization [facility] Address [address] [facility] [place] [address] Care Team Providers Care General Merchandise Manager Name Role Phone Johnnie Alex MD Unavailable [phone] Johnnie Alex MD Primary Care Provider Tuesday, Shanti RICKETTS Unavailable [phone] Johnnie Alex MD Unavailable [phone] Johnnie Alex MD Unavailable [phone] Encounter Details Date Type Department Care Team (Late st Contact Info) Description 01/04/2023 Abstract [facility] [address] [facility] [address] [place] [id number] Johnnie Alex MD [address] [place] [address] [place] [address] Social History Tobacco Use Types Packs/Day Years [...] Visit [facility] [address] [facility] [address] [place] [address] Johnnie Alex MD [address] [facility] [address] [place] [address] documented as of this encounter Visit Diagnoses Not on filedocumented in this encounter Care Teams General Merchandise Manager Relationship Specialty Start Date End Date Johnnie Alex MD [address] [place] [address] PCP - ACO Reach 12/16/22 08/30/24 Johnnie Alex MD [address] [place] [address] PCP - General Internal Medicine 01/10/23 Johnnie Alex MD [address] [place] [address] PCP - Devoted 07/25/24 Johnnie Alex MD [address] [place] [address] PCP - ACO Reach 09/07/24 10/25/24Tuesday, JAMARCUS Moser [address] [place] [address] Licensed Practical Nurse Family Medicine 01/16/24 02/14/24 documented as of this encounter
--- OUTSIDE RECORDS SUMMARY | 2025-01-21 13:45 | XMS_ITS | Clinical Summary ---
Author Organization [employer] [facility] Address [id number] [address] [place] [address] Care Team Providers Care Search Developer Name Role Phone Johnnie Alex MD Primary Care Provider [phone] Allergies Active Allergy Reactions Criticality Noted Date Comments Sulfa (Sulfonamide Antibiotics) 01/23 Medications atenolol (TENORMIN) 50 mg tablet Take 50 mg by mouth daily. Active hydroCHLOROthiaz ryan (HYDRODIURIL) 25 mg tablet Take 25 mg by mouth daily. Active potassium chloride (MICRO-K) 10 MEQ CR capsule Take by mouth 2 (two) times a day. Active piroxicam (FELDENE) 10 mg capsule Take 10 mg by mouth daily. Active LORazepam (ATIVAN) 0.5 mg tablet Take 0.5 mg by mouth every 6 (six) hours as needed for anxiety. Active estrogens, conjugated, (PREMARIN) 0.625 mg tablet Take 0.625 mg by mouth daily. Take daily for 21 days then do not take for 7 days. Active conjugated estrogens (PREMARIN) vaginal cream Insert into the vagina nightly. Active calcium carbonate-vitami n D3 (CALCIUM 500 + D) 500 mg(1,250mg) -200 units per tablet Take 1 tablet by mouth 2 (two) times a day with meals. Active sodium,potassium ,mag sulfates (SUPREP BOWEL PREP KIT) 17.5-3.13-1.6 gram recon soln 177 ml actual weight 2 times daily Oral 1 kit 0 02/15/2017 Active Active Problems No known active problems Social History Tobacco Use Types Packs/Day Years Used Date Smoking Tobacco: Former Alcohol Use Standard Drinks/Week Comments Yes 0 (1 standard drink = 0.6 oz pur e alcohol) 3-4 weekends Childcare Answer Date Recorded Childcare Unknown 01/03/2019 Employment Answer Date Recorded Employment Unknown 01/03/2019 Purpose - Life Answer Date Recorded Purpose and direction in life Unknown Comments No Sex and Gender Information Value Date Recorded Sex Assigned at Not on file Legal Sex Female 11:16 AM EDT Gender Identity Not on file Sexual Orientation Not on file Last Filed Vital Signs Vital Sign Reading Time Taken Comments Blood Pressure - - Pulse - - Temperature - - Respiratory Rate - - Oxygen Saturation - - Inhaled Oxygen Concentration - - Weight 81.6 kg (180 lb) 08/01/2018 3:47 PM EST Height 170.2 cm (5' 7 ) 08/01/2018 3:47 PM EST Body Mass Index 28.19 08/01/2018 3:47 PM EST Plan of Treatment Health Maintenance Due Date Last Done Comments Depression Screening 1969 Tobacco Screening 1969 Adult BMI Screening 1975 DTaP,Tdap and Td Vaccines (1 - Tdap) 01/07/1976 Zoster (Shingles) Vaccine (1 of 2) 2007 Fall Risk Screening 2022 Influenza Vaccine 03/25/2025 Colonoscopy 03/09/2027 03/09/2017 Medical Devices Not on file Insurance [facility] Care Teams Search Developer Relationship Specialty Start Date End Date Johnnie Alex MD 112 [facility] [address] [place] [phone] PCP - General Internal Medicine 07/20/18
--- OUTSIDE RECORDS SUMMARY | 2025-01-21 13:45 | XMS_ITS | Encounter Summary ---
Author Organization [facility] Address [address] [facility] [place] [address] Care Team Providers Care Lead Architect Name Role Phone Johnnie Alex MD Unavailable [phone] Johnnie Alex MD Primary Care Provider [phone] Johnnie Alex MD Unavailable [phone] Johnnie Alex MD Unavailable [phone] Encounter Details Date Type Department Care Team (Late st Contact Info) Description 07/16/2024 Abstract [facility] [address] [facility] [address] [place] [address] Johnnie Alex MD 112 [facility] 110 [place] [address] Social History Tobacco Use Types Packs/Day Years [...] often do you attend chur ch or restorationist services? Never 04/13/2023 Do you belong to any clubs o r organizations such as sikhism groups, unions, fraternal or athletic groups, or [...] Recorded Patient Health Questionnaire-2 Score 0 01/16/2024 [facility] - Occupational Stress Questionnaire Answer Date [...] place to sleep or slept in a long-term (including now)? No 04/13/2023 Comments Unknown Sex and Gender Information Value Date Recorded Sex Assigned at Not on file Legal Sex Female 6:56 PM EDT Gender Identity Not on file Sexual Orientation Not on file documented as of this encounter Plan of Treatment Upcoming Encounters Date Type Department Care Team (Late st Contact Info) Description 01/16/2026 1:00 PM EDT Office Visit [facility] [address] [facility] [address] [place] [address] Johnnie Alex MD 112 [facility] [address] [place] [address] documented as of this encounter Visit Diagnoses Not on filedocumented in this encounter Additional Health Concerns Assessment Noted Time PHQ-9 Depression Total Score: 0 01/16/20 8:00 AM EDT documented as of this encounter Care Teams Lead Architect Relationship Specialty Start Date End Date Johnnie Alex MD 112 [facility] [address] [place] [address] PCP - ACO Reach 12/16/22 08/30/24 Johnnie Alex MD [address] [facility] [address] [place] [address] PCP - General Internal Medicine 01/10/23 Johnnie Alex MD [address] [facility] [address] [place] [address] PCP - Devoted 07/25/24 Johnnie Alex MD [address] [facility] [place] [address] PCP - ACO Reach 09/07/24 10/25/24 documented as of this encounter
--- OUTSIDE RECORDS SUMMARY | 2025-01-21 13:45 | XMS_ITS | Encounter Summary ---
Author Organization [facility] Address [address] [facility] [place] [address] Care Team Providers Care Community Case Manager Name Role Phone Johnnie Alex MD Unavailable [phone] Johnnie Alex MD Primary Care Provider [phone] TuesdayShanti LPN Unavailable [phone] Johnnie Alex MD Unavailable [phone] Johnnie Alex MD Unavailable [phone] Encounter Details Date Type Department Care Team (Late st Contact Info) Description 01/11/2023 Abstract [facility] [address] [facility] [address] [place] [phone] Johnnie Alex MD [address] [facility] [address] [place] [address] Social History Tobacco Use Types Packs/Day Years Used Date Smoking Tobacco: Former Cigarettes Q uit: 2001 PHQ-2 Answer Date Recorded Patient Health Questionnaire-2 Score 0 01/12/2023 Comments Unknown Sex and Gender Information Value [...] pleasure in doing things Not at all 01/12/2023 8:00 AM ZAIDAT Isis Plasencia LP N Feeling down, depressed, or hopeless Not at all 01/12/2023 8:00 AM EDT Isis Plasencia LP N Patient Health Questionnaire -2 Score 0 01/12/2023 8:00 AM EDT Isis Plasencia LP N * Question Answer Date of Assessment Author Trouble falling or staying asleep, or sleeping too much Not at all 01/12/2023 8:00 AM EDT Isis Plasencia LPN documented as of this encounter Plan of Treatment Upcoming Encounters Date Type Department Care Team (Late st Contact Info) Description 01/16/2026 1:00 PM EDT Office Visit [facility] [address] [facility] [address] [place] [address] Johnnie Alex MD [address] [facility] [address] [place] [address] documented as of this encounter Visit Diagnoses Not on filedocumented in this encounter Care Teams Community Case Manager Relationship Specialty Start Date End Date Johnnie Alex MD [address] [facility] [address] [place] [address] PCP - ACO Reach 12/16/22 08/30/24 Johnnie Alex MD [address] [facility] [address] [place] [address] PCP - General Internal Medicine 01/10/23 Johnnie Alex MD [address] [facility] [address] [place] [address] PCP - Devoted 07/25/24 Johnnie Alex MD [address] [facility] [address] [place] [address] PCP - ACO Reach 09/07/24 10/25/24Tuesday, JAMARCUS Moser [address] [place] [address] Licensed Practical Nurse Family Medicine 01/16/24 02/14/24 documented as of this encounter
--- OUTSIDE RECORDS SUMMARY | 2025-01-21 13:45 | XMS_ITS | Encounter Summary ---
Author Organization [facility] Address [address] [place] [address] Care Team Providers Care Keeper Helper Name Role Phone Johnnie Alex MD Primary Care Provider [phone] Johnnie Alex MD Unavailable [phone] Encounter Details Date Type Department Care Team (Late st Contact Info) Description 12/14/2024 External Result Encounter [facility] External Department Unsolicited Zaid Amos, DO [address] [place] [address] Social History Tobacco Use Types Packs/Day Years [...] often do you attend chur ch or oriental orthodox services? Never 04/13/2023 Do you belong to any clubs o r organizations such as evangelical groups, unions, fraternal or athletic groups, or [...] Date Recorded Patient Health Questionnaire-2 Score 0 08/22/2024 [facility] - Occupational Stress [...] place to sleep or slept in a chcf (including now)? No 04/13/2023 Comments Unknown Sex and Gender Information Value Date Recorded Sex Assigned at Not on file Legal Sex Female 6:56 PM EDT Gender Identity Not on file Sexual Orientation Not on file documented as of this encounter Plan of Treatment Upcoming Encounters Date Type Department Care Team (Late st Contact Info) Description 01/16/2026 1:00 PM EDT Office Visit [facility] 112 [facility] 110 [place] [address] Johnnie Alex MD 112 [facility] [address] [place] [address] documented as of this encounter Procedures Procedure Name Priority Date/Time Associated Diagnosis Comments CT CHEST W IV CONTRAST 12/14/2024 12:12 PM EDT documented in this encounter Results * CT chest w IV contrast (12/14/2024 12:12 PM EDT) Anatomical Region Laterality Modality Body, Chest Computed Tomogra phy 12/14/2024 12:1 2 PM EDT Impressions 12/14/2024 12:[address] evidence of tumor recurrence or metastatic disease within the chest, abdomen or pelvis. Stable cyst pancreatic body. Impression dictated by: Desean Bhagat M.D. 12/14/2024 12:18 PM Dictation Location: [id number] Transcribed By: [facility] 12/14/24 1218 Dictated By: Desean Bhagat MD 12/14/24 121 Signed By: <Electronically signed by Desean Bhagat MD in OV> 12/14/24 1218 Narrative 12/14/2024 12:20 PM EDT [facility] [address] CT Scan Report Signed Patient: Savi Love MR#: [id number] : 1955 Acct:[id number] Age/Sex: 69 / F ADM Date: 12/14/24 Loc: Room: Type: [facility] RCR Attending Dr: Zaid Amos II DO Copies to: Zaid Amos II, DO Ordering Provider: Zaid Amos II, DO Date of Service: 12/14/24 CT/CT chest w con: 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 This CT exam was performed using one or more following dose reduction techniques: Automated exposure control, adjustment of the mA and/or kV according to patient size, or use of iterative reconstruction technique. FINDINGS: CT chest: Mediastinum:Thoracic aorta appears normal in caliber. Pulmonary trunk appears nondilated. Mild cardiomegaly. No pericardial effusion. The esophagus is grossly unremarkable. Lungs:Post surgical changes involving the right lung. Mild lung scarring. No consolidation pneumothorax pleural effusion or nodule. Soft tissues/Bones: Soft tissues surrounding the chest wall demonstrate no acute findings. Osseous structures demonstrate degenerative change. CT abdomen and pelvis: Organs:Liver and spleen demonstrate granulomatous changes. Gallbladder portal vein adrenal glands appear unremarkable. 13 mm cyst involving the pancreatic body, unchanged. No enhancing renal mass or hydronephrosis. GI: Stomach is grossly unremarkable. Small bowel appears nondilated. Appendix is normal. No acute colonic abnormality. Colon diverticulosis.[ Pelvis:[Uterus absent. No adnexal mass. Urinary bladder is grossly unremarkable.] Peritoneum/Retroperitoneum:No free air or free fluid or lymphadenopathy.[Abdominal aorta appears normal in caliber. Abd wall/Bones:Abdominal wall demonstrates no acute findings. 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 This CT exam was performed using one ormore following dose reduction techniques: Automated exposure control, adjustment of the mAand/or kV according to patient size, or use of iterative reconstruction technique. FINDINGS: CT chest: Mediastinum:Thoracic aorta appears normal in caliber. Pulmonary trunkappears nondilated. Mild cardiomegaly. No pericardial effusion. The esophagus is grosslyunremarkable. Lungs:Post surgical changes involving the right lung. Mild lung scarring.No consolidation pneumothorax pleural effusion or nodule. Soft tissues/Bones: Soft tissues surrounding the chest wall demonstrate noacute findings. Osseous structures demonstrate degenerative change. CT abdomen and pelvis: Organs:Liver and spleen demonstrate granulomatous changes. Gallbladderportal vein adrenal glands appear unremarkable. 13 mm cyst involving the pancreatic body, unchanged.No enhancing renal mass or hydronephrosis. GI: Stomach is grossly unremarkable. Small bowel appears nondilated.Appendix is normal. No acute colonic abnormality. Colon diverticulosis.[ Pelvis:[Uterus absent. No adnexal mass. Urinary bladder is grosslyunremarkable.] Peritoneum/Retroperitoneum:No free air or free fluid orlymphadenopathy.[Abdominal aorta appears normal in caliber. Abd wall/Bones:Abdominal wall demonstrates no acute findings. Osseousstructures demonstrate degenerative change.[ CT/CT abdomen pelvis w con IMPRESSION: No CT evidence of tumor recurrence or metastatic disease within thechest, abdomen or pelvis. Stable cyst pancreatic body. Impression dictated by: Desean Bhagat M.D. 12/14/2024 12:18 PM Dictation Location: [place] [address] Transcribed By: [facility] 12/14/24 1218 Dictated By: Desean Bhagat MD 12/14/24 1212 Signed By: <Electronically signed by Desean Bhagat MD in OV> 12/14/24 1218 Zaid Amos DO IMG CT PROCEDURES Final R esult documented in this encounter Visit Diagnoses Not on filedocumented in this encounter Additional Health Concerns Assessment Noted Time PHQ-9 Depression Total Score: 0 01/16/20 24 8:00 AM EDT documented as of this encounter Care Teams Keeper Helper Relationship Specialty Start Date End Date Johnnie Alex MD [address] [facility] [address] [place] [address] PCP - General Internal Medicine 01/10/23 Johnnie Alex MD [address] [facility] [address] [place] [address] PCP - Devoted 07/25/24 documented as of this encounter
--- OUTSIDE RECORDS SUMMARY | 2025-01-21 13:45 | XMS_ITS | Encounter Summary ---
Author Organization [facility] Address [address] [facility] [place] [address] Care Team Providers Care Chamber Worker Name Role Phone Johnnie Alex MD Unavailable [phone] Johnnie Alex MD Primary Care Provider [phone] Tuesday, Shanti RICKETTS Unavailable [phone] Johnnie Alex MD Unavailable [phone] Johnnie Alex MD Unavailable [phone] Encounter Details Date Type Department Care Team (Late st Contact Info) Description 12/27/2022 Abstract [facility] [address] [facility] [address] [place] [phone] Johnnie Alex MD [address] [facility] [address] [place] [address] Social History Tobacco Use Types Packs/Day Years [...] Visit [facility] [address] [facility] [address] [place] [address] Johnnie Alex MD [address] [facility] 110 [place] [address] documented as of this encounter Visit Diagnoses Not on filedocumented in this encounter Care Teams Chamber Worker Relationship Specialty Start Date End Date Johnnie Alex MD [address] [facility] [address] [place] [address] PCP - ACO Reach 12/16/22 08/30/24 Johnnie Alex MD [address] [facility] [address] [place] [address] PCP - General Internal Medicine 01/10/23 Johnnie Alex MD [address] [facility] [address] [place] [address] PCP - Devoted 07/25/24 Johnnie Alex MD [address] [facility] [address] [place] [address] PCP - ACO Reach 09/07/24 10/25/24Tuesday, JAMARCUS Moser [address] [place] [address] Licensed Practical Nurse Family Medicine 01/16/24 02/14/24 documented as of this encounter
--- OUTSIDE RECORDS SUMMARY | 2025-01-21 13:45 | XMS_ITS | Encounter Summary ---
Author Organization [facility] Address [address] [facility] [place] [address] Care Team Providers Care Medical Office Technology Instructor Name Role Phone Johnnie Alex MD Unavailable [phone] Johnnie Alex MD Primary Care Provider [phone] Johnnie Alex MD Unavailable [phone] Johnnie Alex MD Unavailable [phone] Encounter Details Date Type Department Care Team (Late st Contact Info) Description 05/01/2024 Abstract [facility] [address] [facility] [address] [place] [address] Johnnie Alex MD 112 [facility] 110 [place] [address] Social History Tobacco Use Types Packs/Day Years [...] often do you attend chur ch or cheondoism services? Never 04/13/2023 Do you belong to any clubs o r organizations such as oriental orthodox groups, unions, fraternal or athletic groups, or [...] 01/16/2024 [facility] - Occupational Stress Questionnaire Answer Date [...] place to sleep or slept in a custodial (including now)? No 04/13/2023 Comments Unknown Sex and Gender Information Value Date Recorded Sex Assigned at Not on file Legal Sex Female 6:56 PM EDT Gender Identity Not on file Sexual Orientation Not on file documented as of this encounter Plan of Treatment Upcoming Encounters Date Type Department Care Team (Late st Contact Info) Description 01/16/2026 1:00 PM EDT Office Visit [facility] [address] [facility] [address] [place] [address] Johnnie Alex MD [address] [facility] [address] [place] [address] documented as of this encounter Visit Diagnoses Not on filedocumented in this encounter Additional Health Concerns Assessment Noted Time PHQ-9 Depression Total Score: 0 01/16/20 8:00 AM EDT documented as of this encounter Care Teams Medical Office Technology Instructor Relationship Specialty Start Date End Date Johnnie Alex MD [address] [facility] [address] [place] [address] PCP - ACO Reach 12/16/22 08/30/24 Johnnie Alex MD [address] [facility] [address] [place] [address] PCP - General Internal Medicine 01/10/23 Johnnie Alex MD [address] [facility] [address] [place] [address] PCP - Devoted 07/25/24 Johnnie Alex MD [address] [facility] [place] [address] PCP - ACO Reach 09/07/24 10/25/24 documented as of this encounter
--- OUTSIDE RECORDS SUMMARY | 2025-01-21 13:45 | XMS_ITS | Clinical Summary ---
Author Organization [facility] Address [address] [place] [address] Care Team Providers [employer] Reading [employer] Name Role Phone Johnnie Alex MD Primary Care Provider Johnnie Alex MD Unavailable [phone] Allergies Active Allergy Reactions Criticality Noted Date Comments Sulfanilamide Hives 01/09/2023 Wound Dressing Adhesive Dermatitis Medium 05/30/2023 Medications calcium citrate 600 mg and vitamin D3 (Citrical & Minerals + Vit D) 600-200 MG-UNIT tablet Take 1 tablet by mouth in the morning. Active Cranberry 500 MG tablet Daily. Active B Complex Vitamins (vitamin B complex) tablet Take by mouth Daily. Active zinc gluconate 50 MG tablet Take by mouth Daily. Active losartan (Cozaar) 100 MG tablet Take 100 mg by mouth in the morning. 01/11/20 23 Active magnesium oxide (Mag-Ox) 400 mg tablet Take 400 mg by mouth in the morning and 400 mg before bedtime. Active triamterene-hydro chlorothiazide (Maxzide) 75-50 MG tablet Take 1 tablet by mouth in the morning. 03/07/20 23 Active aspirin 81 MG EC tablet Take 81 mg by mouth in the morning. Active atenolol (Tenormin) 50 MG tabletIndications :Essential (primary) hypertension TAKE 1 TABLET BY MOUTH ONCE DAILY 90 tablet 3 01/12/20 24 Active melatonin 10 MG tablet Take 10 mg by mouth as needed at bedtime 05/31/20 23 Active Multiple Vitamins-Minerals (Multivitamin Women 50+) tablet Take 1 tablet by mouth Daily Active potassium chloride CR (Klor-Con M20) 20 MEQ ER tablet Take 2 tablets by mouth Daily 12/18/20 24 Active atorvastatin (Lipitor) 20 MG tabletIndications :Abnormal cholesterol test TAKE 1 TABLET BY MOUTH DAILY 30 tablet 11 01/03/20 25 Active LORazepam (Ativan) 0.5 MG tabletIndications :Anxiety Take 1 tablet (0.5 mg) by mouth Daily as needed for anxiety 30 tablet 2 01/17/20 25 Active meloxicam (Mobic) 15 MG tabletIndications :Osteoarthritis of both knees, unspecified osteoarthritis type Take 1 tablet (15 mg) by mouth in the morning. 90 tablet 1 01/17/20 25 Active LORazepam (Ativan) 0.5 MG tabletIndications :Anxiety Take 1 tablet (0.5 mg) by mouth Daily as needed for anxiety 30 tablet 01/16/20 24 025 Discontinued(Re order) atorvastatin (Lipitor) 20 MG tabletIndications :Abnormal cholesterol test Take 1 tablet (20 mg) by mouth Daily 30 tablet 11 01/19/20 24 025 Discontinued meloxicam (Mobic) 15 MG tabletIndications :Osteoarthritis of both knees, unspecified osteoarthritis type TAKE 1 TABLET BY MOUTH IN THE MORNING 90 tablet 1 10/09/19 25 025 Discontinued(Re order) Active Problems Problem Noted Date Diagnosed Date Pure hypercholesterolemia 01/16/2025 Seasonal allergic rhinitis due to pollen 024 Carcinoid bronchial adenoma of right lung 2023 Other thrombophilia ([facility]) 01/16/2024 Benign carcinoid tumor of the bronchus and lung 01/16/2024 Interstitial pulmonary disease, unspecified 12/24 Atherosclerosis of aorta 01/16/2024 Thoracic aortic ectasia 01/16/2024 History of pneumothorax 01/16/2024 Bradycardia 05/27/2023 First degree AV block 05/27/2023 Former smoker 05/27/2023 High risk medication use 05/27/2023 History of atrial fibrillation 05/27/2023 Overweight with body mass in dex (BMI) of 28 to 28.9 in adult 05/27/2023 Abnormal computerized axial tomography of chest 01/09/2023 MAISHA positive 01/09/2023 Anxiety 01/09/2023 Atelectasis of right lung 01/09/2023 Fibromyalgia 01/09/2023 Pulmonary fibrosis, unspecified 01/09/2023 History of hysterectomy 01/09/2023 HTN (hypertension), benign 01/09/2023 Hypokalemia 01/09/2023 Lumbar spondylolysis 01/09/2023 Osteoarthritis of both knees 01/09/2023 Paroxysmal atrial fibrillation 11/23/2022 History of lobectomy of lung 11/17/2022 Lung mass 11/15/2022 Overview (01/16/2024): Added automatically from request for surgery [id number] Neuroendocrine tumor 11/15/2022 Resolved Problems Problem Noted Date Diagnosed Date Resolved Date Medication course changed 05/27/2023 Decreased estrogen level 01/09/2023 Pneumothorax 11/22/2022 01/16/2024 New onset atrial fibrillation 11/21/2022 01/16/2024 Encounters Date Type Department Care Team Description 01/17/2025 Abstract [facility] [address] [place] [address] Johnnie Alex MD 01/16/2025 8:30 AM EDT Office Visit [facility] [address] [place] [address] Johnnie Alex MD Routine general medical examination at health care facility (Primary Dx); ACP (advance care planning); Encounter for screening mammogram for breast cancer; 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); Pure hypercholesterolemia ; Anxiety; Osteoarthritis of both knees, unspecified osteoarthritis type 01/16/2025 Bamboo flowsheet [facility] [address] [facility] [address] [place] [address] Johnnie Alex MD 01/16/2025 Travel 01/02/2025 Refill [facility] [address] [facility] [address] [place] [address] Raudel Melvin MD Abnormal cholesterol test 12/24/2024 Abstract [facility] [address] [facility] [address] [place] [address] Johnnie Alex MD 12/14/2024 External Result Encounter [facility] Unsolicited Zaid Amos, DO 12/14/2024 External Result Encounter [facility] External [facility] Unsolicited Zaid Amos, DO 12/14/2024 External Result Encounter [facility] External Department Unsolicited Zaid Amos, DO 12/14/2024 External Result Encounter [facility] External Department Unsolicited Zaid Amos, DO 12/14/2024 External Result Encounter [facility] External Department Unsolicited Zaid Amos, DO from Last 3 Months Immunizations Immunization Administration Dates Next Due DTP 05/12/2020 Influenza, High Dose Seasona l, Preservative Free 06/04/2024 Influenza, High-dose Seasona l, Quadrivalent, Preservative Free 04/10/2023,05/19/2022,04/25/2017 Influenza, injectable, MDCK, preservative free, quadrivalent 07/22/2021 Influenza, injectable, quadr ivalent, preservative free 05/05/2020,05/11/2019 Influenza, seasonal, intrade rmal, preservative free 05/23/2018 Pneumococcal Conjugate PCV 13 11/07/2020, 014 Pneumococcal Conjugate PCV 20 05/19/2022, 021 Pneumococcal Conjugate PCV 7 11/07/2020 Pneumococcal Polysaccharide PPSV23 04/25/2006 Zoster, Recombinant 05/22/2023,02/18/2023 Family History Medical History Relation Name Comments Diabetes Father Heart disease Father htn Father Diabetes Mother Stroke Mother Relation Name Status Comments Father Mother Alive Social History Tobacco Use Types Packs/Day Years [...] often do you attend chur ch or orthodox services? Never 04/13/2023 Do you belong to any clubs o r organizations such as taoism groups, unions, fraternal or athletic groups, or [...] Recorded Patient Health Questionnaire-2 Score 0 01/16/2025 [facility] - Occupational [...] place to sleep or slept in a correction (including now)? No 04/13/2023 Comments Unknown Sex and Gender Information Value Date Recorded Sex Assigned at Not on file Legal Sex Female 6:56 PM EDT Gender Identity Not on file Sexual Orientation Not on file Last Filed Vital Signs Vital Sign Reading Time Taken Comments Blood Pressure 128/76 01/16/2025 8:22 AM EDT Pulse 60 01/16/2025 8:22 AM EDT Temperature - - Respiratory Rate 16 01/16/2024 8:33 AM EDT Oxygen Saturation 98% 01/16/2025 8:22 AM EDT Inhaled Oxygen Concentration - - Weight 77.1 kg (170 lb) 01/16/2025 8:22 AM EDT Height 170.2 cm (5' 7 ) 01/16/2025 8:22 AM EDT Body Mass Index 26.63 01/16/2025 8:22 AM EDT Plan of Treatment Upcoming Encounters Date Type Department Care Team (Late st Contact Info) Description 01/16/2026 1:00 PM EDT Office Visit [facility] [address] [place] [phone] Johnnie Alex MD [address] [place] [address] Health Maintenance Due Date Last Done Comments CT Colonography 1955 FIT-DNA 1955 FIT 1955 FOBT 1955 Sigmoidoscopy 1955 Mammogram 12/28/2024 12/29/2023, 12/24, 01/11/2022, Additional history exists Medicare Annual Wellness (AWV) 01/16/2026 0 01/16/2025, 01/16/2024, 01/12/2023, Additional history exists Colonoscopy 03/09/2027 03/09/2017 Colorectal Cancer Screening 03/09/2027 Pneumococcal Vaccine: 65+ Years Completed 05/19/2022, 06/24/2021, 11/07/2020, Additional history exists Influenza Vaccine Completed 06/04/2024, , 05/19/2022, Additional history exists Procedures Procedure Name Priority Date/Time Associated Diagnosis Comments CT CHEST W IV CONTRAST 12:12 PM EDT SEROTONIN SERUM Routine 12/14/2024 9:31 AM EDT CHROMOGRAN A Routine 12/14/2024 9:31 AM EDT COMPREHENSIVE METABOLIC PANEL Routine 12/14/2024 9:31 AM EDT CBC WITH AUTO DIFFERENTIAL Routine 12/14/2024 9:31 AM EDT 5-HIAA URINE RANDOM Routine 12/14/2024 9 :24 AM EDT MM TOMOSYNTHESIS SCREENING BI 12/29/2023 1:51 PM EDT COLONOSCOPY Routine 03/09/2017 12:00 PM EDT from Last 3 Months or Most Recently Relevant to Health Maintenance Results * CT chest w IV contrast (12/14/2024 12:12 PM EDT) Anatomical Region Laterality Modality Body, Chest Computed Tomogra phy 12/14/2024 12:1 2 PM EDT Impressions 12/14/2024 12:[address] evidence of tumor recurrence or metastatic disease within the chest, abdomen or pelvis. Stable cyst pancreatic body. Impression dictated by: Desean Bhagat M.D. 12/14/2024 12:18 PM Dictation Location: RADIO-PC-23 Transcribed By: PWS 12/14/24 1218 Dictated By: Desean Bhagat MD 12/14/24 1212 Signed By: <Electronically signed by Desean Bhagat MD in OV> 12/14/24 1218 Narrative 12/14/2024 12:20 PM EDT [facility] [place] [address] CT Scan Report Signed Patient: Savi Samaniego MR#: [id number] : 1955 Acct:[id number] Age/Sex: 69 / F ADM Date: 12/14/24 Loc: Room: Type[facility] Attending Dr: Zaid Amos II DO Copies to: Zaid Amos II, DO Ordering Provider: Zaid Amos II, DO Date of Service: 12/14/24 CT/CT chest w con: C7A.090 - Malignant carcinoid tumor of the bronchus and lung ([id number]) CT/CT abdomen pelvis w con: C7A.090 - [...] con Procedure Note Radiology, Radiologist, - 12/14/2024 [facility] [place] [address] [place] [address] CT Scan Report Signed Patient: Savi Samaniego WMR#: [id number] : 1955cct:[id number] Age/Sex: 69 / FADM Date: 12/14/24 Loc: XT Room:Type: [facility] Attending Dr: Zaid Amos II DO Copies to: Zaid Amos II, DO Ordering Provider: Zaid Amos II, DO Date of Service: 12/14/24 CT/CT chest w con: C7A.090 - Malignantcarcinoid tumor of the bronchus and lung ([id number]) CT/CT abdomen pelvis w con: C7A.090 - [...] Bhagat M.D. 12/14/2024 12:18 PM Dictation Location: [place] [address] Transcribed By: [facility] 12/14/24 1218 Dictated By: Desean Bhagat MD 12/14/24 1212 Signed By: <Electronically signed by Desean Bhagat MD in OV> 12/14/24 1218 Zaid Amos DO IMG CT PROCEDURES Final R esult * CHROMOGRAN A (12/14/2024 9:31 AM EDT) CHROMOGRAN A 44.7 0.0 - 101.8 ng/mL 12/18/2024 4:08 PM EDT [facility] Comment: Chromogranin A performed by [employer] methodology Values obtained with different assay methods or kits cannot be used interchangeably. Performed at: - [facility] [id number] Aml Analyst: Daniel Lawson MD, Phone: [phone] Other Topography unknown / Unknown 12/14/2024 9:31 AM EDT 12/14/2024 9:38 AM EDT us Zaid Amos DO LAB BLOOD ORDERABLES Marcelle l Result [facility] [address] [place] [address], * CBC auto differential (12/14/2024 9:31 AM EDT) WBC 7.1 3.8 - 11.6 10*3/uL 12/14/2024 9:47 AM EDT [facility] UNCORRECTED WHITE BLOOD COUNT 7.1 3.8 - 11.6 10*3/uL 12/14/2024 9:47 AM EDT [facility] RBC 4.30 3.60 - 5.00 10*6/uL 12/14/2024 9:47 AM EDT [facility] HEMOGLOBIN 13.4 11.8 - 15.4 g/dL 12/14/2024 9:47 AM EDT [facility] HEMATOCRIT 38.6 34.0 - 46.4 % 12/14/2024 9:47 AM EDT [facility] MCV 89.7 80 - 100 fL 12/14/2024 9:47 AM EDT [facility] MCH 31.2 24.7 - 34.3 pg 12/14/2024 9:47 AM EDT [facility] MCHC 34.8 32.0 - 35.0 g/dL 12/14/2024 9:47 AM EDT [facility] RED CELL DISTRIBUTION WIDTH, RDW 13.0 11.9 - 15.3 % 12/14/2024 9:47 AM EDT [facility] PLATELET COUNT 331 150 - 450 10*3/uL 12/14/2024 9:47 AM EDT [facility] MEAN PLATELET VOLUME, MPV 7.4 6.3 - 10.7 fL 12/14/2024 9:47 AM EDT [facility] NEUTROPHILS, % 67.0 . % 12/14/2024 9:47 AM EDT [facility] LYMPHOCYTES, % 19.3 . % 12/14/2024 9:47 AM EDT [facility] MONOCYTE/MACROPHA GE, % 7.9 . % 12/14/2024 9:47 AM EDT [facility] EOSINOPHILS, % 5.1 . % 12/14/2024 9:47 AM EDT [facility] BASOPHILS, % 0.7 . % 12/14/2024 9:47 AM EDT [facility] NRBC 0.0 0 - 0.5 /100{WBC} 12/14/2024 9:47 AM EDT [facility] NEUTROPHILS 4.7 1.8 - 7.7 10*3/uL 12/14/2024 9:47 AM EDT [facility] LYMPHOCYTES 1.4 1.00 - 4.8 10*3/uL 12/14/2024 9:47 AM EDT [facility] MONOCYTES 0.6 0.0 - 0.8 10*3/uL 12/14/2024 9:47 AM EDT [facility] EOSINOPHILS 0.4 0.0 - 0.45 10*3/uL 12/14/2024 9:47 AM EDT [facility] BASOPHILS 0.1 0.0 - 0.2 10*3/uL 12/14/2024 9:47 AM EDT [facility] Blood (Blood) 12/14/2024 9:3 1 AM EDT 12/14/2024 9:38 AM EDT us Zaid Amos DO LAB BLOOD ORDERABLES Marcelle barone Result [facility] [address] [place] [address], [facility] [address] [place] [address] * Serotonin serum (12/14/2024 9:31 AM EDT) SEROTONIN, SERUM 61 8 - 217 ng/mL 12/20/2024 2:08 PM [facility] Comment: This test was developed and its performance characteristics determined [facility]. It has not been cleared or approved by the Food and Drug Administration. Performed at: [facility] [address] [id number] Aml Analyst: Daniel Lawson MD, Phone: [phone] Other Topography unknown / Unknown 12/14/2024 9:31 AM EDT 12/14/2024 9:38 AM EDT us Zaid Amos DO LAB BLOOD ORDERABLES Marcelle l Result [facility] [address] [place] [address], * (ABNORMAL) Comprehensive metabolic panel (12/14/2024 9:31 AM EDT) Glucose 88 70 - 100 mg/dL 12/14/2024 10:13 AM [facility] Comment: Random Glucose Reference Range is dependent on time and content of last meal. Glucose of more than 200 mg/dL in a nonstressed, ambulatory subject supports the diagnosis of Diabetes Mellitus. ADA recommended reference range BUN 17 7 - 25 mg/dL 12/14/2024 10:13 AM [facility] CREATININE 0.76 0.60 - 1.20 mg/dL 12/14/2024 10:13 AM [facility] ESTIMATED GFR >60.0 mL/Min 12/14/2024 10:13 AM [facility] Sodium 137 136 - 145 mmol/L 12/14/2024 10:13 AM [facility] Potassium, Bld 3.7 3.5 - 5.1 mmol/L 12/14/2024 10:13 AM [facility] Chloride 99 98 - 107 mmol/L 12/14/2024 10:13 AM [facility] Carbon Dioxide 31.2(H) 21.0 - 31.0 mmol/L 12/14/2024 10:13 AM [facility] Anion Gap 10.5 6.0 - 15.0 meq/L 12/14/2024 10:13 AM EDT [facility] Calcium 10.4(H) 8.6 - 10.3 mg/dL 12/14/2024 10:13 AM EDT [facility] TOTAL PROTEIN 7.7 6.4 - 8.9 g/dL 12/14/2024 10:13 AM EDT [facility] ALBUMIN LEVEL 4.6 3.5 - 5.7 g/dL 12/14/2024 10:13 AM EDT [facility] GLOBULIN 3.1 g/dL 12/14/2024 10:13 AM EDT [facility] ALBUMIN/GLOBULIN RATIO 1.5 12/14/2024 10:13 AM EDT [facility] BILIRUBIN,TOTAL 0.7 0.3 - 1.0 mg/dL 12/14/2024 10:13 AM EDT [facility] ASPARTATE AMINO TRANSFERASE 25 13 - 39 U/L 12/14/2024 10:13 AM EDT [facility] ALANINE AMINOTRANSFERASE 33 7 - 52 U/L 12/14/2024 10:13 AM EDT [facility] ALKALINE PHOSPHATASE 97 34 - 104 U/L 12/14/2024 10:13 AM EDT [facility] CREATININE CLR [facility] 76.56 12/14/2024 10:13 AM [facility] Other Topography unknown / Unknown 12/14/2024 9:31 AM EDT 12/14/2024 9:38 AM EDT Zaid Amos DO LAB BLOOD ORDERABLES Marcelle l Result Performing Organization Address City/[facility] Co de Phone Number [facility] [address] [place] [address], [facility] [address] [place] [address] * 5-HIAA URINE RANDOM (12/14/2024 9:24 AM EDT) CREAT HIAA 33.7 Not Estab. mg/dL 12/18/2024 9:07 PM EDT [facility] HIAA, URINE RANDOM 1.1 Undefined mg/L 12/18/2024 9:07 PM EDT [facility] Comment: This test was developed and its performance characteristics determined by [facility]. It has not been cleared or approved by the Food and Drug Administration. CREAT HIAA RATIO 3.3 0.0 - 6.9 12/19/19 9:07 PM EDT [facility] Comment: Performed at: [address] [id number] Aml Analyst: Daniel Lawson MD, Phone: [phone] Other 12/14/2024 9:24 AM EDT 12/14/2024 9:37 AM EDT us Zaid Amos DO LAB BLOOD ORDERABLES Marcelle l Result [facility] [address] [place] [address], [place] * MM TOMOSYNTHESIS SCREENING BI (12/29/2023 1:51 PM EDT) Anatomical Region Laterality Modality Other 12/29/2023 1:51 PM EDT Narrative 12/29/2023 1:52 [place] [address] Mammography Report Signed Patient: SAVI SAMANIEGO MR#: [id number] : 1955 Acct:[id number] Age/Sex: 68 / F ADM Date: 12/26/23 Loc: MAMMO Attending Dr: JOHNNIE ALEX Ordering Physician: JOHNNIE ALEX Results: Date of Service: 12/26/23 Follow Up: Procedure(s): MM tomosynthesis screening BI Accession Number(s): [id number] cc: JOHNNIE ALEX Patient Name: SAVI SAMANIEGO MR#: [id number] : 1955 Exam Date: 12/26/2023 Ordering Doctor: DR JOHNNIE ALEX M.D. RADIOLOGY REPORT PROCEDURE: MM TOMOSYNTHESIS SCREENING BI COMPARISON: MG MAMM SCREEN 3D ADAM CAD, 01/11/2022. MG MAMM SCREEN ADAM W CAD, 09/02/2020. MG MAMM SCREEN ADAM W CAD, 08/14/2019. MG MAMM ADAM SCRN W CAD DIG, 03/27/2013. INDICATIONS: Screening Calculator Name NCI Breast Cancer Risk Assessment Tool 5 Year Breast Cancer Risk 1.90% Lifetime Breast Cancer Risk 6.70% Personal Breast Cancer No Personal Ovarian Cancer No Treatments None Family Cancers Grandmother-maternal with lymphoma cancer at age 45; Grandfather-paternal with stomach cancer at age 50; Brother with skin cancer at age 62; Brother with colon cancer at age 61; Mother with esophageal cancer at age 82. LOCATION: [facility] BREAST COMPOSITION: There are scattered areas of fibroglandular density. FINDINGS: DIAGNOSTIC CATEGORY 2--BENIGN FINDING: RIGHT BREAST: No significant suspicious finding. Scattered benign-appearing lymph nodes are present. No significant change has occurred. LEFT BREAST: No significant suspicious finding. Scattered benign-appearing lymph nodes are present. No significant change has occurred. RECOMMENDATIONS: ROUTINE MAMMOGRAM AND CLINICAL EVALUATION IN 12 MONTHS. PLEASE NOTE: A NORMAL MAMMOGRAM DOES NOT EXCLUDE THE POSSIBILITY OF BREAST CANCER. A CLINICALLY SUSPICIOUS PALPABLE LUMP SHOULD BE BIOPSIED. Dictated by: Johan Garrido M.D. on 12/29/2023 at 13:41 Approved by: Johan Garrido M.D. on 12/29/2023 at 13:51 Dictated By: Johan Garrido M.D. Signed By: 12/29/23 1352 DD/ 1351 TD/TT: Gritting Machine Operator: Procedure Note Radiology, Radiologist, MD - 12/29/2023 [place] [address] Mammography Report Signed Patient: SAVI SAMANIEGO WMR#: [id number] : 1955cct:[id number] Age/Sex: 68 / FADM Date: 12/26/23 Loc: MAMMO Attending Dr: JOHNNIE ALEX Ordering Physician: JOHNNIE ALEXResults: Date of Service: 12/26/23Follow Up: Procedure(s): MM tomosynthesis screening BI Accession Number(s): [id number] cc: JOHNINE ALEX Patient Name: SAVI SAMANIEGO MR#: [id number] : 1955 Exam Date: 12/26/2023 Ordering Doctor: DR JOHNNIE ALEX M.D. RADIOLOGY REPORT PROCEDURE: MM TOMOSYNTHESIS SCREENING BI COMPARISON: MG MAMM SCREEN 3D ADAM CAD, 01/11/2022. MG MAMM SCREEN BILW CAD, 09/02/2020. MG MAMM SCREEN ADAM W CAD, 08/14/2019. MG MAMM ADAM SCRN WCAD DIG, 03/27/2013. INDICATIONS: Screening Calculator Name NCI Breast Cancer Risk Assessment Tool 5 Year Breast Cancer Risk 1.90% Lifetime Breast Cancer Risk 6.70% Personal Breast Cancer No Personal Ovarian Cancer No Treatments None Family Cancers Grandmother-maternal with lymphoma cancer at age 45; Grandfather-paternal with stomach cancer at age 50; Brother with skincancer at age 62; Brother with colon cancer at age 61; Mother with esophagealcancer at age 82. LOCATION: [facility] BREAST COMPOSITION: There are scattered areas of fibroglandulardensity. FINDINGS: DIAGNOSTIC CATEGORY 2--BENIGN FINDING: RIGHT BREAST: No significant suspicious finding. Scatteredbenign-appearing lymph nodes are present. No significant change has occurred. LEFT BREAST: No significant suspicious finding. Scatteredbenign-appearing lymph nodes are present. No significant change has occurred. RECOMMENDATIONS: ROUTINE MAMMOGRAM AND CLINICAL EVALUATION IN 12 MONTHS. PLEASE NOTE: A NORMAL MAMMOGRAM DOES NOT EXCLUDE THE POSSIBILITY OFBREAST CANCER. A CLINICALLY SUSPICIOUS PALPABLE LUMP SHOULD BE BIOPSIED. Dictated by: Johan Garrido M.D. on 12/29/2023 at 13:41 Approved by: Johan Garrido M.D. on 12/29/2023 at 13:51 Dictated By: Johan Garrido M.D. Signed By:12/29/23 1352 DD/ 1351 TD/TT: Gritting Machine Operator: us Johnnie Alex MD [facility] Final Result * Colonoscopy (03/09/2017 12:00 PM EDT) Anatomical Region Laterality Modality Endoscopy 03/09/2017 12:0 0 PM EDT Narrative 03/09/2017 12:00 PM EDT PERFORMED AT [facility] LOCATION:[id number] normal Procedure Note CONVERSION, GENERIC - 12/09/2022 PERFORMED AT [facility] LOCATION:[id number] normal Kush Enriquez DO ENDOSCOPY PROCEDURE ORDERA BLES Final Result from Last 3 Months or Most Recently Relevant to Health Maintenance Insurance [employer] Care Teams [employer] Reading Teacher Relationship Specialty Start Date End Date Johnnie Alex MD [address] [facility] [address] [place] [address] PCP - General Internal Medicine 01/10/23 Johnnie Alex MD [address] [facility] [address] [place] [address] PCP - Devoted 07/25/24
--- OUTSIDE RECORDS SUMMARY | 2025-01-21 13:45 | XMS_ITS | Encounter Summary ---
Author Organization [facility] Address [address] [facility] [place] [address] Care Team Providers Care Junior Electrical Engineer Name Role Phone Johnnie Alex MD Primary Care Provider [phone] Johnnie Alex MD Unavailable [phone] Encounter Details Date Type Department Care Team (Late st Contact Info) Description 12/24/2024 Abstract [facility] 112 [facility] 110 [place] [id number] Johnnie Alex MD [address] [facility] 110 [place] [address] Social History Tobacco Use Types Packs/Day Years [...] any clubs o r organizations such as sabianist groups, unions, fraternal or athletic groups, or [...] Recorded Patient Health Questionnaire-2 Score 0 08/22/2024 [facility] of Occupat ional Health - [...] Visit [facility] [address] [facility] 110 [place] [address] Johnnie Alex MD [address] [facility] 110 [place] [address] documented as of this encounter Visit Diagnoses Not on filedocumented in this encounter Additional Health Concerns Assessment Noted Time PHQ-9 Depression Total Score: 0 01/16/20 24 8:00 AM EDT documented as of this encounter Care Teams Junior Electrical Engineer Relationship Specialty Start Date End Date Johnnie Alex MD [address] [facility] 110 [place] [address] PCP - General Internal Medicine 01/10/23 Johnnie Alex MD [address] [facility] [address] [place] [address] PCP - Devoted 07/25/24 documented as of this encounter
--- OUTSIDE RECORDS SUMMARY | 2025-01-21 13:45 | XMS_ITS | Encounter Summary ---
Author Organization [facility] Address [address] [facility] [place] [address] Care Team Providers Care Nurse Practitioner Home Assessments Name Role Phone Johnnie Alex MD Unavailable [phone] Johnnie Alex MD Primary Care Provider [phone], Shanti RICKETTS Unavailable [phone] Johnnie Alex MD Unavailable [phone] Johnnie Alex MD Unavailable [phone] Encounter Details Date Type Department Care Team (Late st Contact Info) Description 12/22/2022 Clinisync Result Encounter NOMS External Department Unsolicited Johnnie Alex MD [address] [facility] 110 [place] [address] Social History Tobacco Use Types Packs/Day Years [...] Visit [facility] [address] [facility] 110 [place] [address] Johnnie Alex MD [address] [facility] 110 [place] [address] documented as of this encounter Procedures Procedure Name Priority Date/Time Associated Diagnosis Comments XR CHEST (SINGLE VIEW FRONTAL) 12/22/2022 10:37 AM EDT documented in this encounter Results * XR CHEST (SINGLE VIEW FRONTAL) (12/22/2022 10:37 AM EDT) Anatomical Region Laterality Modality Other 12/22/2022 10:3 7 AM EDT Narrative 12/22/2022 10:38 AM EDT EXAMINATION: ONE XRAY VIEW OF THE CHEST 12/22/2022 10:37 am COMPARISON: November 17, 2022; November 18, 2022; November 20, 2022 HISTORY: ORDERING SYSTEM PROVIDED HISTORY: Status post lung surgery, follow-up exam TECHNOLOGIST PROVIDED HISTORY: What reading provider will be dictating this exam?->CRC FINDINGS: The right hemidiaphragm is elevated. No consolidation is seen on this examination. A pneumothorax seen in the right lower lobe has resolved.. In the right apical region there appears to be evidence are thoracotomy consistent with patient's history. There is slight hilar prominence that is similar to previous studies on the right. The cardiac silhouette is stable. Mild degenerative changes are seen in the spine. IMPRESSION: Post operative changes are seen on the right. No pneumothorax, pleural effusion or consolidation visualized. Interpreted by: Rickie Arana DO Signed by: Rickie Arana DO 12/22/22 Final result Procedure Note Radiology, Radiologist, MD - 01/10/2023 EXAMINATION: ONE XRAY VIEW OF THE CHEST 12/22/2022 10:37 am COMPARISON: November 17, 2022; November 18, 2022; November 20, 2022 HISTORY: ORDERING SYSTEM PROVIDED HISTORY: Status post lung surgery, follow-upexam TECHNOLOGIST PROVIDED HISTORY: What reading provider will be dictating this exam?->CRC FINDINGS: The right hemidiaphragm is elevated. No consolidation is seen on this examination. A pneumothorax seen in the right lower lobe has resolved..In the right apical region there appears to be evidence are thoracotomy consistent with patient's history. There is slight hilar prominence thatis similar to previous studies on the right. The cardiac silhouette isstable. Mild degenerative changes are seen in the spine. IMPRESSION: Post operative changes are seen on the right. No pneumothorax, pleural effusion or consolidation visualized. Interpreted by: Rickie Arana DO Signed by: Rickie Arana DO 12/22/22 Final result us Johnnie Alex MD [facility] Final Result documented in this encounter Visit Diagnoses Not on filedocumented in this encounter Care Teams Nurse Practitioner Home Assessments Relationship Specialty Start Date End Date Johnnie Alex MD [address] [facility] [address] [place] [address] PCP - ACO Reach 12/16/22 08/30/24 Johnnie Alex MD [address] [facility] [address] [place] [address] PCP - General Internal Medicine 01/10/23 Johnnie Alex MD [address] [facility] [address] [place] [address] PCP - Devoted 07/25/24 Johnnie Alex MD [address] [facility] [address] [place] [address] PCP - ACO Reach 09/07/24 10/25/24Tuesday, JAMARCUS Moser [address] [place] [address] Licensed Practical Nurse Family Medicine 01/16/24 02/14/24 documented as of this encounter
--- OUTSIDE RECORDS SUMMARY | 2025-01-21 13:46 | XMS_ITS | Encounter Summary ---
Author Organization [facility] Address [address] [place] [address] Care Team Providers Care Supervisor Fur Dressing Name Role Phone Johnnie Alex MD Unavailable [phone] Johnnie Alex MD Primary Care Provider [phone], Shanti RICKETTS Unavailable [phone] Johnnie Alex MD Unavailable [phone] Johnnie Alex MD Unavailable [phone] Encounter Details Date Type Department Care Team (Late st Contact Info) Description 11/29/2023 External Result Encounter [facility] External Department Unsolicited Zaid Amos, DO [address] [place] [address] Social History Tobacco Use Types Packs/Day Years [...] How often do you attend chur or sabianism services? Never 04/13/2023 Do you belong to any clubs o r organizations such as yazidi groups, unions, fraternal or athletic groups, or [...] Recorded Patient Health Questionnaire-2 Score 0 01/12/2023 [facility] Occupat ionma Health - Occupational Stress Questionnaire Answer Date [...] place to sleep or slept in a intermediate (including now)? No 04/13/2023 Comments Unknown Sex and Gender Information Value Date Recorded Sex Assigned at Not on file Legal Sex Female 6:56 PM EDT Gender Identity Not on file Sexual Orientation Not on file documented as of this encounter Plan of Treatment Upcoming Encounters Date Type Department Care Team (Late st Contact Info) Description 01/16/2026 1:00 PM EDT Office Visit [facility] 112 [facility] 110 [place] [address] Johnnie Alex MD 112 [facility] 110 [place] [address] documented as of this encounter Procedures Procedure Name Priority Date/Time Associated Diagnosis Comments CT ABDOMEN PELVIS W IV CONTRAST 11/29/2023 3:18 PM EDT documented in this encounter Results * CT abdomen pelvis w IV contrast (11/29/2023 3:18 PM EDT) Anatomical Region Laterality Modality Body, Pelvis, Abdomen Computed T omography 11/29/2023 3:18 PM EDT Impressions 11/29/2023 4:11 PM EDT NO PATHOLOGIC ADENOPATHY. NO DEVELOPING PULMONARY NODULARITY. FATTY LIVER. PANCREATIC CYST, POTENTIALLY MINIMALLY LARGER. DIVERTICULOSIS. NO OTHER ACUTE FINDINGS. Impression dictated by: Mirna Almendarez M.D.11/29/2023 4:09 PM Dictation Location: [place] [address] Transcribed By: [facility] 11/29/23 1609 Dictated By: Mirna Almendarez MD 11/29/23 1518 Signed By: <Electronically signed by MD Mirna Almendarez in OV> 11/29/23 1609 Narrative 11/29/2023 4:11 PM EDT [facility] [place] [address] [place] [address] CT Scan Report Signed Patient: Savi Love MR#: [id number] : 1955 Acct:[id number] Age/Sex: 68 / F ADM Date: 11/29/23 Loc: Room: Type: [facility] Attending Dr: Zaid Amos II DO Copies to: Zaid Amos II, DO Ordering Provider: Zaid Amos II, DO Date of Service: 11/29/23 CT/CT chest w con: survelance ([id number]) CT/CT abdomen pelvis w con: survelance CT CHEST, ABDOMEN AND PELVIS WITH INTRAVENOUS CONTRAST: CLINICAL HISTORY: 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 Images of the chest were reviewed using both narrow and wide window settings. This CT exam was performed using one or more following dose reduction techniques: Automated exposure control, adjustment of the mA and/or kV according to patient size, or use of iterative reconstruction technique. FINDINGS: The heart is top normal in size. There is no pericardial effusion. The ascending aorta is mildly ectatic. No dissection is seen. There is no developing mediastinal or hilar lymphadeno mariluz. Prevascular and left hilar calcified granulomas are again seen. There is minor scarring at the right base. There is no consolidation, pleural effusion or pneumothorax. The similar tiny nodular densities seen at the medial left costophrenic angle. Degenerative changes are visualized at the spine. Fatty infiltration of the liver is visualized. No masses are seen. There are no calcified gallstones. Hepatic and splenic granulomas are present. Is no adrenal nodularity. The cyst on the anterior margin of the body of the pancreas could be minimally larger. It currently measures approximately 13 x 11 mm. There are symmetric renal nephrograms, without hydronephrosis. There is mild atherosclerotic plaque at the aorta. Tiny mesenteric and retroperitoneal lymph nodes are again seen. There is no ascites. There is no dilated small bowel. A retrocecal appendix is present, without inflammation. There is stool along the colon. There is subtle dextroscoliotic curvature and degenerative changes at the spine, greatest distally where there is prominent stenosis at L3-4 and L4-5. Images through the pelvis show no dilated small bowel. There is stool at the distal colon. Sigmoid diverticula are present, without associated active inflammation. The uterus is surgically absent. No urinary bladder abnormalities are seen. There is ascites or adenopathy. 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 Images of the chestwere reviewed using both narrow and wide window settings. This CT exam was performed using one ormore following dose reduction techniques: Automated exposure control, adjustment of the mAand/or kV according to patient size, or use of iterative reconstruction technique. FINDINGS: The heart is top normal in size. There is no pericardialeffusion. The ascending aorta is mildly ectatic. No dissection is seen. There is no developingmediastinal or hilar lymphadeno mariluz. Prevascular and left hilar calcified granulomas are again seen.There is minor scarring at the right base. There is no consolidation, pleural effusion orpneumothorax. The similar tiny nodular densities seen at the medial left costophrenic angle. Degenerativechanges are visualized at the spine. Fatty infiltration of the liver is visualized. No masses are seen. Thereare no calcified gallstones. Hepatic and splenic granulomas are present. Is no adrenalnodularity. The cyst on the anterior margin of the body of the pancreas could be minimally larger. Itcurrently measures approximately 13 x 11 mm. There are symmetric renal nephrograms, withouthydronephrosis. There is mild atherosclerotic plaque at the aorta. Tiny mesenteric andretroperitoneal lymph nodes are again seen. There is no ascites. There is no dilated small bowel. A retrocecalappendix is present, without inflammation. There is stool along the colon. There is subtledextroscoliotic curvature and degenerative changes at the spine, greatest distally where there isprominent stenosis at L3-4 and L4-5. Images through the pelvis show no dilated small bowel. There is stool atthe distal colon. Sigmoid diverticula are present, without associated active inflammation. Theuterus is surgically absent. No urinary bladder abnormalities are seen. There is ascites or adenopathy. CT/CT chest w con IMPRESSION: NO PATHOLOGIC ADENOPATHY. NO DEVELOPING PULMONARY NODULARITY. FATTY LIVER. PANCREATIC CYST, POTENTIALLY MINIMALLY LARGER. DIVERTICULOSIS. NO OTHER ACUTE FINDINGS. Impression dictated by: Mirna Almendarez M.D.11/29/2023 4:09 PM Dictation Location: [place] [address] Transcribed By: [facility] 11/29/23 2436 Dictated By: Mirna Almendarez MD 11/29/23 4678 Signed By: <Electronically signed by MD Mirna Almendarez in OV> 11/29/23 1609 Zaid Alexis Amos DO IMG CT PROCEDURES Final R esult documented in this encounter Visit Diagnoses Not on filedocumented in this encounter Care Teams Supervisor Fur Dressing Relationship Specialty Start Date End Date Johnnie Alex MD [address] [facility] [address] [place] [address] PCP - ACO Reach 12/16/22 08/30/24 Johnnie Alex MD [address] [facility] [address] [place] [address] PCP - General Internal Medicine 01/10/23 Johnnie Alex MD [address] [facility] [address] [place] [address] PCP - Devoted 07/25/24 Johnnie Alex MD [address] [facility] [address] [place] [address] PCP - ACO Reach 09/07/24 10/25/24Tuesday, JAMARCUS Moser [address] [place] [address] Licensed Practical Nurse Family Medicine 01/16/24 02/14/24 documented as of this encounter
--- OUTSIDE RECORDS SUMMARY | 2025-01-21 13:46 | XMS_ITS | Encounter Summary ---
Author Organization [facility] Address [address] [facility] [place] [address] Care Team Providers Care Solderer Barrel Ribs Name Role Phone Johnnie Alex MD Unavailable [phone] Johnnie Alex MD Primary Care Provider [phone] Tuesday, Shanti RICKETTS Unavailable [phone] Johnnie Alex MD Unavailable [phone] Johnnie Alex MD Unavailable [phone] Encounter Details Date Type Department Care Team (Late st Contact Info) Description 05/25/2023 Abstract [facility] 112 [facility] 110 [place] [id number] Johnnie Alex MD 112 [facility] 110 [place] [address] Social History Tobacco Use Types Packs/Day Years [...] How often do you attend chur or rastafarian services? Never 04/13/2023 Do you belong to any clubs o r organizations such as scientology groups, unions, fraternal or athletic groups, or [...] Recorded Patient Health Questionnaire-2 Score 0 01/12/2023 [facility] of Occupat ional Health - Occupational Stress [...] place to sleep or slept in a fpc (including now)? No 04/13/2023 Comments Unknown Sex [...] Visit [facility] [address] [facility] 110 [place] [address] Johnnie Alex MD [address] [facility] 110 [place] [address] documented as of this encounter Visit Diagnoses Not on filedocumented in this encounter Care Teams Solderer Barrel Ribs Relationship Specialty Start Date End Date Johnnie Alex MD [address] [facility] [address] [place] [address] PCP - ACO Reach 12/16/22 08/30/24 Johnnie Alex MD [address] [facility] [address] [place] [address] PCP - General Internal Medicine 01/10/23 Johnnie Alex MD [address] [facility] [address] [place] [address] PCP - Devoted 07/25/24 Johnnie Alex MD [address] [facility] [address] [place] [address] PCP - ACO Reach 09/07/24 10/25/24Tuesday, JAMARCUS Moser [address] [place] [address] Licensed Practical Nurse Family Medicine 01/16/24 02/14/24 documented as of this encounter
--- OUTSIDE RECORDS SUMMARY | 2025-01-21 13:46 | XMS_ITS | Encounter Summary ---
Author Organization [facility] Address [address] [facility] [place] [address] Care Team Providers Care Fermenting Cellar Dropper Name Role Phone Johnnie Alex MD Primary Care Provider [phone] Johnnie Alex MD Unavailable [phone] Encounter Details Date Type Department Care Team (Late st Contact Info) Description 01/17/2025 Abstract [facility] 112 [facility] 110 [place] [id number] Johnnie Alex MD 112 [facility] 110 [place] [address] Social History Tobacco Use Types Packs/Day Years [...] often do you attend chur ch or hoahaoism services? Never 04/13/2023 Do you belong to any clubs o r organizations such as judaism groups, unions, fraternal or athletic groups, or [...] Recorded Patient Health Questionnaire-2 Score 0 01/16/2025 [facility] of Occupat ional Health - Occupational Stress [...] place to sleep or slept in a mcfp (including now)? No 04/13/2023 Comments Unknown Sex [...] Visit [facility] [address] [facility] [address] [place] [address] Johnnie Alex MD [address] [facility] 110 [place] [address] documented as of this encounter Visit Diagnoses Not on filedocumented in this encounter Additional Health Concerns Assessment Noted Time PHQ-9 Depression Total Score: 0 01/16/20 24 8:00 AM EDT documented as of this encounter Care Teams Fermenting Cellar Dropper Relationship Specialty Start Date End Date Johnnie Alex MD [address] [facility] 110 [place] [address] PCP - General Internal Medicine 01/10/23 Johnnie Alex MD [address] [facility] [address] [place] [address] PCP - Devoted 07/25/24 documented as of this encounter
--- OUTSIDE RECORDS SUMMARY | 2025-01-21 13:46 | XMS_ITS | Encounter Summary ---
Author Organization [facility] Address [address] [place] [address] Phone Care Team Providers Care Supervisor Sheet Manufacturing Name Role Phone Johnnie Alex MD Primary Care Provider [phone] Encounter Details Date Type Department Care Team (Late st Contact Info) Description 01/31/2023 Orders Only [facility] [address] [place] [address] Conversion, Onbase Social History Tobacco Use Types Packs/Day Years [...] Description 05/27/2025 12:30 PM EST Office Visit [facility] [address] [facility] [address] [place] [address] Felicia Silvestre MD [address] [facility] [address] [place] [address] Scheduled Orders Name Type Priority Associated Diagnoses Orde r Schedule OUTSIDE LAB SCAN Lab Ordered: 01/31/2023 documented as of this encounter Visit Diagnoses Not on filedocumented in this encounter Care Teams Supervisor Sheet Manufacturing Relationship Specialty Start Date End Date Johnnie Alex MD 112 [facility] 110 [place] [address] PCP - General 01/10/23 documented as of this encounter
--- OUTSIDE RECORDS SUMMARY | 2025-01-21 13:46 | XMS_ITS | Encounter Summary ---
Author Organization [facility] Address [address] [facility] [place] [address] Care Team Providers Care Healthcare Facility Administrator Name Role Phone Johnnie Alex MD Unavailable [phone] Johnnie Alex MD Primary Care Provider [phone] Tuesday, Shanti RICKETTS Unavailable [phone] Johnnie Alex MD Unavailable [phone] Johnnie Alex MD Unavailable [phone] Encounter Details Date Type Department Care Team (Late Contact Info) Description 02/14/2023 Abstract [facility] [address] [facility] 110 [place] [address] Johnnie Alex MD [address] [facility] 110 [place] [address] Social History Tobacco Use Types Packs/Day Years Used Date Smoking Tobacco: Former Cigarettes Q uit: 2001 Smokeless Tobacco: Never Alcohol Use Standard Drinks/Week Comments Not Currently 0 (1 standard drink = 0.6 oz pur e alcohol) PHQ-2 Answer Date Recorded Patient Health Questionnaire-2 Score 0 01/12/2023 Comments Unknown Sex and Gender Information Value Date Recorded Sex Assigned at Not on file Legal Sex Female 6:56 PM EDT Gender Identity Not on file Sexual Orientation Not on file documented as of this encounter Plan of Treatment Upcoming Encounters Date Type Department Care Team (Late Contact Info) Description 01/16/2026 1:00 PM EDT Office Visit [facility] [address] [facility] 110 [place] [address] Johnnie Alex MD [address] [facility] [address] [place] [address] documented as of this encounter Visit Diagnoses Not on filedocumented in this encounter Care Teams Healthcare Facility Administrator Relationship Specialty Start Date End Date Johnnie Alex MD [address] [facility] [address] [place] [address] PCP - ACO Reach 12/16/22 08/30/24 Johnnie Alex MD [address] [facility] [address] [place] [address] PCP - General Internal Medicine 01/10/23 Johnnie Alex MD [address] [facility] [address] [place] [address] PCP - Devoted 07/25/24 Johnnie Alex MD [address] [facility] [address] [place] [address] PCP - ACO Reach 09/07/24 10/25/24Tuesday, JAMARCUS Moser [address] [place] [address] Licensed Practical Nurse Family Medicine 01/16/24 02/14/24 documented as of this encounter
--- OUTSIDE RECORDS SUMMARY | 2025-01-21 13:46 | XMS_ITS | Encounter Summary ---
Author Organization [facility] Address [address] [facility] [place] [address] Care Team Providers Care Boner Meat Name Role Phone Johnnie Alex MD Unavailable [phone] Johnnie Alex MD Primary Care Provider [phone] Tuesday, Shanti RICKETTS Unavailable [phone] Johnnie Alex MD Unavailable [phone] Johnnie Alex MD Unavailable [phone] Encounter Details Date Type Department Care Team (Late st Contact Info) Description 04/13/2023 Orders Only [facility] [address] [place] [address] A, Unknown Practice [address] [place] [address] Social History Tobacco Use Types Packs/Day Years [...] How often do you attend chur or church services? Never 04/13/2023 Do you belong to any clubs o r organizations such as protestant groups, unions, fraternal or athletic groups, or [...] Recorded Patient Health Questionnaire-2 Score 0 01/12/2023 [facility] of Occupat ional Health - Occupational [...] place to sleep or slept in a mcc (including now)? No 04/13/2023 Comments Unknown Sex and Gender Information Value Date Recorded Sex Assigned at Not on file Legal Sex Female 6:56 PM EDT Gender Identity Not on file Sexual Orientation Not on file COVID-19 Exposure Response Date Recorded In the last 10 days, have yo u been in contact with someone who was confirmed or suspected to have Coronavirus/COVID-19? No / Unsure 04/13/2023 2:21 PM EDT documented as of this encounter Functional Status * Audit-C Score Answer Date of Assessment Author 2 04/13/2023 2:20 PM EDT Papito, Generic * Q1: How often do you have a drink containing alcohol? Answer Date of Assessment Author 2-4 times a month 04/13/2023 2:20 PM EDT Papito , Generic * Q2: How many drinks containing alcohol do you have on a typical day when you are drinking? Answer Date of Assessment Author 1 or 2 04/13/2023 2:20 PM EDT Papito, Generic * Q3: How often do you have six or more drinks on one occasion? Answer Date of Assessment Author Never 04/13/2023 2:20 PM EDT Papito, Generic documented as of this encounter Plan of Treatment Upcoming Encounters Date Type Department Care Team (Late st Contact Info) Description 01/16/2026 1:00 PM EDT Office Visit [facility] [address] [place] [address] Johnnie Alex MD [address] [place] [address] documented as of this encounter Procedures Procedure Name Priority Date/Time Associated Diagnosis Comments SCANNED LABS Routine 03/17/2023 9:16 AM EDT documented in this encounter Results * SCANNED LABS (03/17/2023 9:16 AM EDT) us Unknown Practice A LAB CHG PERFORMABLES Final Re sult documented in this encounter Visit Diagnoses Not on filedocumented in this encounter Care Teams Boner Meat Relationship Specialty Start Date End Date Johnnie Alex MD [address] [place] [address] PCP - ACO Reach 12/16/22 08/30/24 Johnnie Alex MD [address] [place] [address] PCP - General Internal Medicine 01/10/23 Johnnie Alex MD [address] [place] [address] PCP - Devoted 07/25/24 Johnnie Alex MD [address] [place] [address] PCP - ACO Reach 09/07/24 10/25/24Tuesday, JAMARCUS Moser [address] [place] [address] Licensed Practical Nurse Family Medicine 01/16/24 02/14/24 documented as of this encounter
--- OUTSIDE RECORDS SUMMARY | 2025-01-21 13:46 | XMS_ITS | Encounter Summary ---
Author Organization [facility] Address [address] [facility] [place] [address] Care Team Providers Care Obstetrical Tech Name Role Phone Johnnie Alex MD Unavailable [phone] Johnnie Alex MD Primary Care Provider [phone] Tuesday, Shanti RICKETTS Unavailable [phone] Johnnie Alex MD Unavailable [phone] Johnnie Alex MD Unavailable [phone] Encounter Details Date Type Department Care Team (Late Contact Info) Description 03/08/2023 Abstract [facility] [address] [facility] 110 [place] [address] Johnnie Alex MD [address] [facility] 110 [place] [address] Social History Tobacco Use Types Packs/Day Years [...] Visit [facility] [address] [facility] 110 [place] [address] Johnnie Alex MD [address] [place] [address] documented as of this encounter Visit Diagnoses Not on filedocumented in this encounter Care Teams Obstetrical Tech Relationship Specialty Start Date End Date Johnnie Alex MD [address] [place] [address] PCP - ACO Reach 12/16/22 08/30/24 Johnnie Alex MD [address] [place] [address] PCP - General Internal Medicine 01/10/23 Johnnie Alex MD [address] [place] [address] PCP - Devoted 07/25/24 Johnnie Alex MD [address] [place] [address] PCP - ACO Reach 09/07/24 10/25/24Tuesday, JAMARCUS Moser [address] [place] [address] Licensed Practical Nurse Family Medicine 01/16/24 02/14/24 documented as of this encounter
--- OUTSIDE RECORDS SUMMARY | 2025-01-21 13:46 | XMS_ITS | Encounter Summary ---
Author Organization [facility] Address [address] [facility] [place] [address] Care Team Providers Care Make Up Operator Helper Name Role Phone Johnnie Alex MD Unavailable [phone] Johnnie Alex MD Primary Care Provider [phone] Tuesday, Shanti RICKETTS Unavailable [phone] Johnnie Alex MD Unavailable [phone] Johnnie Alex MD Unavailable [phone] Encounter Details Date Type Department Care Team (Late st Contact Info) Description 12/29/2023 Clinisync Result Encounter [facility] External Department Unsolicited Johnnie Alex MD [address] [place] [address] Social History Tobacco Use Types Packs/Day Years [...] often do you attend chur ch or pentecostal services? Never 04/13/2023 Do you belong to any clubs o r organizations such as voodoo groups, unions, fraternal or athletic groups, or [...] Recorded Patient Health Questionnaire-2 Score 0 01/12/2023 [facility] Occupat ionme Health - Occupational Stress Questionnaire Answer Date [...] 01/16/2026 1:00 PM EDT Office Visit [facility] 112 [facility] 110 [place] [address] Johnnie Alex MD 112 [facility] 110 [place] [address] documented as of this encounter Procedures Procedure Name Priority Date/Time Associated Diagnosis Comments MM TOMOSYNTHESIS SCREENING BI 12/29/2023 1:51 PM EDT documented in this encounter Results * MM TOMOSYNTHESIS SCREENING BI (12/29/2023 1:51 PM EDT) Anatomical Region Laterality Modality Other 12/29/2023 1:51 PM EDT Narrative 12/29/2023 1:52 PM EDT [facility] [place] [id number] Mammography Report Signed Patient: SAVI SAMANIEGO MR#: [id number] : 1955 Acct:[id number] Age/Sex: 68 / F ADM Date: 12/26/23 Loc: MAMMO Attending Dr: JOHNNIE ALEX Ordering Physician: JOHNNIE ALEX Results: Date of Service: 12/26/23 Follow Up: Procedure(s): MM tomosynthesis screening BI Accession Number(s): [id number] cc: FABRIZIOROLADNOJOHNNIE Patient Name: SAVI SAMANIEGO MR#: [id number] : 1955 Exam Date: 12/26/2023 Ordering Doctor: [...] esophageal cancer at age 84. LOCATION: [facility] BREAST COMPOSITION: There are scattered areas of [...] Signed By: 12/29/23 1352 DD/ 1351 TD/TT: Aquatic Physiotherapist: Procedure Note Radiology, Radiologist, MD - 12/29/2023 [place] [address] Mammography Report Signed Patient: SAVI SAMANIEGO WMR#: [id number] : 1955cct:[id number] Age/Sex: 68 / FADM Date: 12/26/23 Loc: MAMMO Attending Dr: JOHNNIE ALEX Ordering Physician: JOHNNIE ALEXResults: Date of Service: 12/26/23Follow Up: Procedure(s): MM tomosynthesis screening BI Accession Number(s): [id number] cc: FABRIZIOJOHNNIE Patient Name: SAVI SAMANIEGO MR#: [id number] : 1955 Exam Date: 12/26/2023 Ordering Doctor: [...] with esophagealcancer at age 84. LOCATION: [facility] BREAST COMPOSITION: There are scattered areas of [...] M.D. Signed By:12/29/23 1352 DD/ 1351 TD/TT: Aquatic Physiotherapist: us Johnnie Alex MD [facility] Final Result documented in this encounter Visit Diagnoses Not on filedocumented in this encounter Care Teams Make Up Operator Helper Relationship Specialty Start Date End Date Johnnie Alex MD [address] [place] [address] PCP - ACO Reach 12/16/22 08/30/24 Johnnie Alex MD [address] [place] [address] PCP - General Internal Medicine 01/10/23 Johnnie Alex MD [address] [place] [address] PCP - Devoted 07/25/24 Johnnie Alex MD [address] [place] [address] PCP - ACO Reach 09/07/24 10/25/24Tuesday, JAMARCUS Moser [address] [place] [address] Licensed Practical Nurse Family Medicine 01/16/24 02/14/24 documented as of this encounter
--- OUTSIDE RECORDS SUMMARY | 2025-01-21 13:46 | XMS_ITS | Encounter Summary ---
Author Organization [facility] Address [address] [facility] [place] [address] Care Team Providers Care Picking Table Worker Name Role Phone Johnnie Alex MD Unavailable [phone] Johnnie Alex MD Primary Care Provider [phone] Tuesday, Shanti RICKETTS Unavailable [phone] Johnnie Alex MD Unavailable [phone] Johnnie Alex MD Unavailable [phone] Encounter Details Date Type Department Care Team (Late st Contact Info) Description 12/05/2023 Abstract [facility] 112 [facility] 110 [place] [phone] Johnnie Alex MD 112 [facility] 110 [place] [address] Social History Tobacco Use Types Packs/Day Years [...] How often do you attend chur or episcopalian services? Never 04/13/2023 Do you belong to [...] Recorded Patient Health Questionnaire-2 Score 0 01/12/2023 [facility] of Occupat ional Health - Occupational [...] [facility] 110 [place] [address] Johnnie Alex MD [address] [facility] 110 [place] [address] documented as of this encounter Visit Diagnoses Not on filedocumented in this encounter Care Teams Picking Table Worker Relationship Specialty Start Date End Date Johnnie Alex MD [address] [facility] 110 [place] [address] PCP - ACO Reach 12/16/22 08/30/24 Johnnie Alex MD [address] [facility] 110 [place] [address] PCP - General Internal Medicine 01/10/23 Johnnie Alex MD [address] [place] [address] PCP - Devoted 07/25/24 Johnnie Alex MD [address] [place] [address] PCP - ACO Reach 09/07/24 10/25/24Tuesday, JAMARCUS Moser [address] [place] [address] Licensed Practical Nurse Family Medicine 01/16/24 02/14/24 documented as of this encounter
--- OUTSIDE RECORDS SUMMARY | 2025-01-21 13:46 | XMS_ITS | Clinical Summary ---
Author Organization [facility] Address [address] [address] Care Team Providers Care Oil Processing Technician Name Role Phone Johnnie Alex MD Primary Care Provider [phone] Allergies Active Allergy Reactions Criticality Noted Date Comments Adhesive Tape Other (See Comments) 11/15/2022 Skins tears Sulfa Antibiotics 02/15/2017 Medications atenolol (TENORMIN) 50 MG tablet Take 1 tablet by mouth daily 3 Active Calcium Carbonate-Vitam in D (OYSTER SHELL CALCIUM/D) 500-5 MG-MCG TABS Take 1 tablet by mouth 2 times daily (with meals) Active LORazepam (ATIVAN) 0.5 MG tablet Take 1 tablet by mouth daily as needed. 3 Active Multiple Vitamins-Minera ls (MULTIVITAMIN WOMEN 50+) TABS Take by mouth daily Active Cholecalciferol (VITAMIN D3) 50 MCG (2000 UT) CAPS Take by mouth Active B Complex-Biotin- FA (B-100 COMPLEX CR PO) Take by mouth A ctive zinc 50 MG CAPS Take by mouth Active Cranberry 500 MG TABS Take by mouth every other day Active apixaban (ELIQUIS) 5 MG TABS tablet Take 1 tablet by mouth 2 times daily 60 tablet 1 3 Active albuterol sulfate HFA (VENTOLIN HFA) 108 (90 Base) MCG/ACT inhaler Inhale 2 puffs into the lungs 4 times daily as needed for Wheezing 18 g 3 Active Additional Information Patient not taking.Reported on 12/22/2022 dilTIAZem (CARDIZEM CD) 240 MG extended release capsule Take 1 capsule by mouth daily 30 capsule 3 3 Active Additional Information Patient not taking.Reported on 12/22/2022 DILT-XR 120 MG extended release capsule Take 1 capsule by mouth daily 3 Active magnesium oxide (MAG-OX) 400 (240 Mg) MG tablet Take 1 tablet by mouth 2 times daily 3 Active hydroCHLOROthia zide (HYDRODIURIL) 25 MG tablet Take 1 tablet by mouth daily Active potassium chloride (KLOR-CON) 20 MEQ packet Take 20 mEq by mouth 2 times daily Active gabapentin (NEURONTIN) 300 MG capsule Take 1 capsule by mouth 3 times daily for 10 days. 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 Overview (11/15/2022): Added automatically from request for surgery [id number] Social History Tobacco Use Types Packs/Day Years Used Date Smoking Tobacco: Former Cigarettes 1 26 1 976 - 2001 Smokeless Tobacco: Never Alcohol Use Standard Drinks/Week Comments Yes 0 (1 standard drink = 0.6 oz pur e alcohol) social Interpersonal Safety Domain Source: IP Abuse Scr eening Answer Date Recorded Read-Only, Retired: Physical Abuse Denies 11/17/2022 Read-Only, Retired: Verbal Abuse Denies 11/17/2022 Read-Only, Retired: Emotional abuse Denies 11/17/2022 Read-Only, Retired: Financial Abuse Denies 11/17/2022 Read-Only, Retired: Sexual abuse Denies 11/17/2022 Comments No Sex and Gender Information Value Date Recorded Sex Assigned at Not on file Legal Sex Female 4:19 PM EST Gender Identity Not on file Sexual Orientation Not on file Last Filed Vital Signs Vital Sign Reading Time Taken Comments Blood Pressure 124/92 11/23/2022 2:03 PM EDT Pulse 56 12/22/2022 11:28 AM EDT Temperature 36.7 C (98 F) 12/22/2022 11:28 AM EDT Respiratory Rate 16 11/23/2022 2:03 PM EDT Oxygen Saturation 98% 12/22/2022 11:28 AM EDT Inhaled Oxygen Concentration - - Weight 81.6 kg (180 lb) 12/22/2022 11:28 AM EDT Height 170.2 cm (5' 7 ) 12/22/2022 11:28 AM EDT Body Mass Index 28.19 12/22/2022 11:28 AM EDT Plan of Treatment Health Maintenance Due Date Last Done Comments Depression Screen 1969 Hepatitis C screen 1975 Breast cancer screen 1997 Lipids 1997 Colonoscopy 2002 Colorectal Cancer Screen 2002 FIT/FOBT: Average risk 2002 Fecal-DNA (Cologuard): Average risk 2002 Sigmoidoscopy/CT colonography 2002 Shingles vaccine (1 of 2) 2007 DEXA (modify frequency per FRAX score) 01/07/2012 Annual Wellness Visit (Medicare) 06/20/2023 COVID-19 Vaccine ( season) 2024 07/22/2021, 10/24/2020, 10/03/2020 Flu vaccine (Season Ended) 02/22/202505/19, 07/22/2021, 05/05/2020, Additional history exists DTaP/Tdap/Td vaccine (2 - Tdap) 05/12/2030 05/12/2020 Respiratory Syncytial Virus (RSV) or age 60 yrs+ (1 - 1-dose 75+ series) 01/07/2032 Pneumococcal 50+ years Vaccine Completed 05/19/2022, 06/24/2021, 11/07/2020, Additional history exists Hepatitis A vaccine Aged Out No longe r eligible based on patient's age to complete this topic Hepatitis B vaccine Aged Out No longe r eligible based on patient's age to complete this topic Hib vaccine Aged Out No longer eligi ble based on patient's age to complete this topic Meningococcal (ACWY) vaccine Aged Out No longer eligible based on patient's age to complete this topic Meningococcal B vaccine Aged Out No l onger eligible based on patient's age to complete this topic Polio vaccine Aged Out No longer elig ible based on patient's age to complete this topic Insurance MEDICARE Member Subscriber Plan / Payer (Ef fective 2022-Present) Name:Savi Love Relation to Subscriber:Self Name:Savi Love Payer ID:Not on file Group ID:Not on file Type:Not on file Address: [address] [place] [address] Advance Directives * Full Code (Latest Code Status on File) Date Activated Date Inactivated Comments 11/17/2022 3:15 PM 11/23/2022 6:13 PM * Full Code Date Activated Date Inactivated Comments 11/17/2022 8:57 AM 11/17/2022 3:15 PM Care Teams Oil Processing Technician Relationship Specialty Start Date End Date Johnnie Alex MD [address] [place] [address] PCP - General Internal Medicine 11/17/22
--- OUTSIDE RECORDS SUMMARY | 2025-01-21 13:46 | XMS_ITS | Encounter Summary ---
Author Organization [facility] Address [address] [facility] [place] [address] Care Team Providers Care Winch Stripper Name Role Phone Johnnie Alex MD Unavailable [phone] Johnnie Alex MD Primary Care Provider [phone] Tuesday, Shanti RICKETTS Unavailable [phone] Johnnie Alex MD Unavailable [phone] Johnnie Alex MD Unavailable [phone] Encounter Details Date Type Department Care Team (Late Contact Info) Description 01/19/2023 Abstract [facility] [address] [facility] 110 [place] [address] Jonhnie Alex MD [address] [facility] 110 [place] [address] Social History Tobacco Use Types Packs/Day Years [...] Visit [facility] [address] [facility] 110 [place] [address] Johnnie Alex MD [address] [place] [address] documented as of this encounter Visit Diagnoses Not on filedocumented in this encounter Care Teams Winch Stripper Relationship Specialty Start Date End Date Johnnie Alex MD [address] [place] [address] PCP - ACO Reach 12/16/22 08/30/24 Johnnie Alex MD [address] [place] [address] PCP - General Internal Medicine 01/10/23 Johnnie Alex MD [address] [place] [address] PCP - Devoted 07/25/24 Johnnie Alex MD [address] [place] [address] PCP - ACO Reach 09/07/24 10/25/24Tuesday, JAMARCUS Moser [address] [place] [address] Licensed Practical Nurse Family Medicine 01/16/24 02/14/24 documented as of this encounter
--- OUTSIDE RECORDS SUMMARY | 2025-01-21 13:46 | XMS_ITS | Encounter Summary ---
Author Organization [facility] Address [address] [facility] [place] [address] Care Team Providers Care Permit Technician Name Role Phone Johnnie Alex MD Unavailable [phone] Johnnie Alex MD Primary Care Provider [phone] Tuesday, Shanti RICKETTS Unavailable [phone] Johnnie Alex MD Unavailable [phone] Johnnie Alex MD Unavailable [phone] Encounter Details Date Type Department Care Team (Late Contact Info) Description 01/19/2023 Abstract [facility] [address] [facility] 110 [place] [address] Johnnie Alex MD [address] [facility] 110 [place] [address] Social History Tobacco Use Types Packs/Day Years [...] Visit [facility] [address] [facility] 110 [place] [address] Johnnie Alex MD [address] [place] [address] documented as of this encounter Visit Diagnoses Not on filedocumented in this encounter Care Teams Permit Technician Relationship Specialty Start Date End Date Johnnie Alex MD [address] [place] [address] PCP - ACO Reach 12/16/22 08/30/24 Johnnie Alex MD [address] [place] [address] PCP - General Internal Medicine 01/10/23 Johnnie Alex MD [address] [place] [address] PCP - Devoted 07/25/24 Johnnie Alex MD [address] [place] [address] PCP - ACO Reach 09/07/24 10/25/24Tuesday, JAMARCUS Moser [address] [place] [address] Licensed Practical Nurse Family Medicine 01/16/24 02/14/24 documented as of this encounter
--- OUTSIDE RECORDS SUMMARY | 2025-01-21 13:46 | XMS_ITS | Encounter Summary ---
Author Organization [facility] Address [address] [place] [address] Phone Care Team Providers Care Sandblaster Supervisor Name Role Phone Johnnie Alex MD Primary Care Provider [phone] Encounter Details Date Type Department Care Team (Late st Contact Info) Description 11/21/2022 Orders Only [facility] [address] [place] [address] Conversion, Onbase Social History Tobacco Use Types [...] Description 05/27/2025 12:30 PM EST Office Visit [facility] [address] [facility] [address] [place] [address] Felicia Silvestre MD [address] [facility] [address] [place] [address] Scheduled Orders Name Type Priority Associated Diagnoses Orde r Schedule OUTSIDE LAB SCAN Lab Ordered: 11/21/2022 documented as of this encounter Visit Diagnoses Not on filedocumented in this encounter Care Teams Sandblaster Supervisor Relationship Specialty Start Date End Date Johnnie Aelx MD 112 [facility] 110 [place] [address] PCP - General 01/10/23 documented as of this encounter
--- OUTSIDE RECORDS SUMMARY | 2025-01-21 13:46 | XMS_ITS | Encounter Summary ---
Author Organization [facility] Address [address] [facility] [place] [address] Care Team Providers Care Tieing Machine Operator Name Role Phone Johnnie Alex MD Primary Care Provider [phone] Johnnie Alex MD Unavailable [phone] Encounter Details Date Type Department Care Team (Latest Contact Info) Description 01/16/2025 Travel Social History Tobacco Use Types Packs/Day Years Used Date Smoking Tobacco: Former Cigarettes Q uit: 2002 Smokeless Tobacco: Never Alcohol Use Standard Drinks/Week [...] week 04/13/2023 How often do you attend [facility] or baptism services? Never 04/13/2023 Do you belong to any clubs o r organizations such as adventist groups, unions, fraternal or athletic groups, or [...] Recorded Patient Health Questionnaire-2 Score 0 01/16/2025 [facility] of Occupat ional Health - Occupational Stress [...] place to sleep or slept in a [place] [facility] [place] (including now)? No 04/13/2023 Comments Unknown Sex [...] 01/16/2026 1:00 PM EDT Office Visit [facility] 112 [facility] 110 [place] [address] Johnnie Alex MD 112 [facility] 110 [place] [address] documented as of this encounter Visit Diagnoses Not on filedocumented in this encounter Additional Health Concerns Assessment Noted Time PHQ-9 Depression Total Score: 0 01/16/20 8:00 AM EDT documented as of this encounter Care Teams Tieing Machine Operator Relationship Specialty Start Date End Date Johnnie Alex MD 112 [facility] 110 [place] [address] PCP - General Internal Medicine 01/10/23 Johnnie Alex MD 112 [facility] 110 [place] [address] PCP - Devoted 07/25/24 documented as of this encounter
--- OUTSIDE RECORDS SUMMARY | 2025-01-21 13:46 | XMS_ITS | Encounter Summary ---
Author Organization [facility] Address [address] [place] [address] Phone Care Team Providers Care Denitrator Name Role Phone Johnnie Alex MD Primary Care Provider [phone] Encounter Details Date Type Department Care Team (Late st Contact Info) Description 11/29/2023 Scanned Document [facility] [address] [place] [id number] Scanning, Generic Provider Social History Tobacco Use Types Packs/Day Years Used Date Smoking Tobacco: Former Cigarettes Smokeless Tobacco: Never Alcohol Use Standard Drinks/Week Comments Yes 1 [...] Description 05/27/2025 12:30 PM EST Office Visit [facility] 703 [facility] 250 [place] [address] Felicia Silvestre MD 917 [facility] 130 [place], [place] [address] documented as of this encounter Visit Diagnoses Not on filedocumented in this encounter Additional Health Concerns Assessment Noted Time A fall risk assessment has been complete d for the patient 05/30/2023 11:24 AM EST documented as of this encounter Care Teams Denitrator Relationship Specialty Start Date End Date Johnnie Alex MD [address] [facility] 110 [place] [address] PCP - General 01/10/23 documented as of this encounter
--- OUTSIDE RECORDS SUMMARY | 2025-01-21 13:46 | XMS_ITS | Encounter Summary ---
Author Organization [facility] Address [address] [place] [address] Phone Care Team Providers Care Director Financial Planning Name Role Phone Johnnie Alex MD Primary Care Provider [phone] Encounter Details Date Type Department Care Team (Late st Contact Info) Description 03/17/[address] [facility] [address] [place] [address] Conversion, Onbase Social History Tobacco Use Types [...] Description 05/27/2025 12:30 PM EST Office Visit [facility] 703 [facility] 250 [place] [address] Felicia Silvestre MD [address] [facility] 130 [place] [address] Scheduled Orders Name Type Priority Associated Diagnoses Orde r Schedule OUTSIDE LAB SCAN Lab Ordered: 03/17/2023 documented as of this encounter Visit Diagnoses Not on filedocumented in this encounter Care Teams Director Financial Planning Relationship Specialty Start Date End Date Johnnie Alex MD 112 [facility] 110 [place] [address] PCP - General 01/10/23 documented as of this encounter
--- OUTSIDE RECORDS SUMMARY | 2025-01-21 13:46 | XMS_ITS | Encounter Summary ---
Author Organization [facility] Address [address] [place] [address] Phone Care Team Providers Care Rehabilitation Supervisor Name Role Phone Johnnie Alex MD Primary Care Provider [phone] Encounter Details Date Type Department Care Team (Late st Contact Info) Description 12/21/2022 Orders Only [facility] [address] [place] [address] Conversion, Onbase Social History Tobacco Use Types [...] EST Office Visit [facility] 703 [facility] 250 [place] [address] Felicia Silvestre MD 917 [facility] 130 [place] [address] Scheduled Orders Name Type Priority Associated Diagnoses Orde r Schedule OUTSIDE LAB SCAN Lab Ordered: 12/21/2022 documented as of this encounter Visit Diagnoses Not on filedocumented in this encounter Care Teams Rehabilitation Supervisor Relationship Specialty Start Date End Date Johnnie Alex MD 112 [facility] 110 [place] [address] PCP - General 01/10/23 documented as of this encounter
--- OUTSIDE RECORDS SUMMARY | 2025-01-21 13:46 | XMS_ITS | Encounter Summary ---
Author Organization [facility] Address [address] [place] [address] Care Team Providers Care Theatrical Trouper Name Role Phone Johnnie Alex MD Unavailable [phone] Johnnie Aelx MD Primary Care Provider [phone], Shanti RICKETTS Unavailable [phone] Johnnie Alex MD Unavailable [phone] Johnnie Alex MD Unavailable [phone] Encounter Details Date Type Department Care Team (Late st Contact Info) Description 05/30/2023 External Result Encounter [facility] External Department Unsolicited Zaid Amos, DO [address] [place] [address] Social History Tobacco Use Types Packs/Day Years [...] How often do you attend chur or restorationism services? Never 04/13/2023 Do you belong to any clubs o r organizations such as anabaptist groups, unions, fraternal or athletic groups, or [...] [facility] of Occupat ionct Health - Occupational Stress Questionnaire Answer Date [...] PM EDT Office Visit [facility] [address] [address] Johnnie Alex MD 112 [facility] 110 [place] [address] documented as of this encounter Procedures Procedure Name Priority Date/Time Associated Diagnosis Comments CT ABDOMEN PELVIS W IV CONTRAST 05/30/2023 1:05 PM EST documented in this encounter Results * CT abdomen pelvis w IV contrast (05/30/2023 1:05 PM EST) Anatomical Region Laterality Modality Body, Pelvis, Abdomen Computed T omography 05/30/2023 1:05 PM EST Impressions 06/15/2023 12:10 PM EST NO DEFINITE RESIDUAL, RECURRENT OR METASTATIC DISEASE. RIGHT LUNG SCARRING. FATTY LIVER. NO BOWEL OR URINARY TRACT OBSTRUCTION. SUSPECTED PANCREATIC CYST, ALSO SEEN PREVIOUSLY. DIVERTICULOSIS. Impression dictated by: Mirna Almendarez M.D.05/30/2023 1:22 PM Dictation Location: [place] [address] Transcribed By: [facility] 05/30/23 1322 Dictated By: Mirna Almendarez MD 05/30/23 1305 Signed By: <Electronically signed by MD Mirna Almendarez in OV> 05/30/23 1322 Narrative 06/15/2023 12:10 PM EST [facility] [place] [address] [place] [address] CT Scan Report Signed Patient: Savi Love MR#: [id number] : [id number] Acct:[id number] Age/Sex: 68 / F ADM Date: 05/30/23 Loc: Room: Type: [facility]CR Attending Dr: Zadi Amos II DO Copies to: Zaid Amos II, DO Ordering Provider: Zaid Amos II, DO Date of Service: 05/30/23 CT/CT chest w con: surveilance ([id number]) CT/CT abdomen pelvis w con: surveilance CT CHEST, ABDOMEN AND PELVIS WITH INTRAVENOUS CONTRAST: CLINICAL HISTORY: Neuroendocrine tumor of the right lung COMPARISON: 10/27/2022 and 11/05/22 PET/CT TECHNIQUE: Spiral images were obtained through the chest, abdomen and pelvis following oral and intravenous administration of 90 mL of Isovue-300. Images were reviewed using both narrow and wide window settings. This CT exam was performed using one or more following dose reduction techniques: Automated exposure control, adjustment of the mA and/or kV according to patient size, or use of iterative reconstruction technique. FINDINGS: The heart is not enlarged. There is no pericardial effusion. Minor coronary calcification is seen. No aortic aneurysm or dissection is seen. No pathologically enlarged lymph nodes are visualized at this time. Asymmetry at the posterior right thyroid lobe is again noted. Minor scarring is present on the right. There is no additional consolidation, pleural effusion or pneumothorax. No pulmonary nodularity is noted. Degenerative changes are visualized at the spine. There are are calcified hepatic and splenic granulomas. Fatty infiltration of the liver is suspected. No intrahepatic masses are seen. There are no calcified gallstones. The adrenal glands show no acute findings. There is a small potential cyst at the body of the pancreas measuring approximately a centimeter in size. This is also noted on the comparison. There are symmetric renal nephrograms, without hydronephrosis. There is atherosclerotic plaque involving the aorta and iliac arteries. There are a few similar abdominal lymph nodes. No ascites is present. The small bowel loops are not dilated. There is a normal retrocecal appendix. Stool is noted along the colon. There is slight dextroscoliotic curvature and multilevel degenerative changes involving the lumbar spine, greatest at the facets. Images through the pelvis show nondistended small bowel. There is stool at the distal colon. Sigmoid diverticula are noted, without associated active inflammation. The uterus is surgically absent. There are no bladder abnormalities for the degree of distention. No adenopathy or ascites is identified. CT/CT chest w con Procedure Note Radiology, Radiologist, - 06/15/2023 [facility] [place] [address] [place] [address] CT Scan Report Signed Patient: Savi Love WMR#: [id number] : 7Acct:[id number] Age/Sex: 68 / FADM Date: 05/30/23 Loc: Room:Type: [facility] Attending Dr: Zaid Amos II DO Copies to: Zaid Amos II, DO Ordering Provider: Zaid Amos II, DO Date of Service: 05/30/23 CT/CT chest w con: surveilance ([id number]) CT/CT abdomen pelvis w con: surveilance CT CHEST, ABDOMEN AND PELVIS WITH INTRAVENOUS CONTRAST: CLINICAL HISTORY: Neuroendocrine tumor of the right lung COMPARISON: 10/27/2022 and 11/05/22 PET/CT TECHNIQUE: Spiral images were obtained through the chest, abdomen andpelvis following oral and intravenous administration of 90 mL of Isovue-300. Images were reviewedusing both narrow and wide window settings. This CT exam was performed using one or more followingdose reduction techniques: Automated exposure control, adjustment of the mA and/or kV according topatient size, or use of iterative reconstruction technique. FINDINGS: The heart is not enlarged. There is no pericardial effusion.Minor coronary calcification is seen. No aortic aneurysm or dissection is seen. Nopathologically enlarged lymph nodes are visualized at this time. Asymmetry at the posterior rightthyroid lobe is again noted. Minor scarring is present on the right. There is no additionalconsolidation, pleural effusion or pneumothorax. No pulmonary nodularity is noted. Degenerative changes arevisualized at the spine. There are are calcified hepatic and splenic granulomas. Fattyinfiltration of the liver is suspected. No intrahepatic masses are seen. There are no calcifiedgallstones. The adrenal glands show no acute findings. There is a small potential cyst at the body ofthe pancreas measuring approximately a centimeter in size. This is also noted on the comparison.There are symmetric renal nephrograms, without hydronephrosis. There is atheroscleroticplaque involving the aorta and iliac arteries. There are a few similar abdominal lymph nodes. Noascites is present. The small bowel loops are not dilated. There is a normal retrocecal appendix.Stool is noted along the colon. There is slight dextroscoliotic curvature and multileveldegenerative changes involving the lumbar spine, greatest at the facets. Images through the pelvis show nondistended small bowel. There is stoolat the distal colon. Sigmoid diverticula are noted, without associated active inflammation.The uterus is surgically absent. There are no bladder abnormalities for the degree of distention.No adenopathy or ascites is identified. CT/CT chest w con IMPRESSION: NO DEFINITE RESIDUAL, RECURRENT OR METASTATIC DISEASE. RIGHT LUNG SCARRING. FATTY LIVER. NO BOWEL OR URINARY TRACT OBSTRUCTION. SUSPECTED PANCREATIC CYST, ALSO SEEN PREVIOUSLY. DIVERTICULOSIS. Impression dictated by: Mirna Almendarez M.D.05/30/2023 1:22 PM Dictation Location: [place] [address] Transcribed By: ARPAN 05/30/23 1322 Dictated By: Mirna Almendarez MD 05/30/23 1305 Signed By: <Electronically signed by MD Mirna Almendarez in OV> 05/30/23 1322 Zaid Amos DO IMG CT PROCEDURES Final R esult documented in this encounter Visit Diagnoses Not on filedocumented in this encounter Care Teams Theatrical Trouper Relationship Specialty Start Date End Date Johnnie Alex MD [address] [facility] [address] [place] [address] PCP - ACO Reach 12/16/22 08/30/24 Johnnie Alex MD [address] [facility] [address] [place] [address] PCP - General Internal Medicine 01/10/23 Johnnie Alex MD [address] [facility] [address] [place] [address] PCP - Devoted 07/25/24 Johnnie Alex MD [address] [facility] [address] [place] [address] PCP - ACO Reach 09/07/24 10/25/24Tuesday, JAMARCUS Moser [address] [place] [address] Licensed Practical Nurse Family Medicine 01/16/24 02/14/24 documented as of this encounter
--- OUTSIDE RECORDS SUMMARY | 2025-01-21 13:46 | XMS_ITS | Encounter Summary ---
Author Organization [facility] Address [address] [facility] [place] [address] Care Team Providers Care Crown And Bridge Technician Name Role Phone Johnnie Alex MD Unavailable [phone] Johnnie Alex MD Primary Care Provider [phone] Tuesday, Shanti RICKETTS Unavailable [phone] Johnnie Alex MD Unavailable [phone] Johnnie Alex MD Unavailable [phone] Encounter Details Date Type Department Care Team (Late st Contact Info) Description 05/31/2023 Abstract [facility] 112 [facility] 110 [place] [address] Johnnie Alex MD 112 [facility] 110 [place] [address] Social History Tobacco Use Types Packs/Day Years [...] How often do you attend chur or anabaptist services? Never 04/13/2023 Do you belong to [...] Recorded Patient Health Questionnaire-2 Score 0 01/12/2023 [facility] of Occupat ional Health - Occupational [...] [facility] [address] [facility] 110 [place] [address] Johnnie Alex MD [address] [facility] 110 [place] [address] documented as of this encounter Visit Diagnoses Not on filedocumented in this encounter Care Teams Crown And Bridge Technician Relationship Specialty Start Date End Date Johnnie Alex MD [address] [facility] 110 [place] [address] PCP - ACO Reach 12/16/22 08/30/24 Johnnie Alex MD [address] [facility] 110 [place] [address] PCP - General Internal Medicine 01/10/23 Johnnie Alex MD [address] [facility] [address] [place] [address] PCP - Devoted 07/25/24 Johnnie Alex MD [address] [facility] [address] [place] [address] PCP - ACO Reach 09/07/24 10/25/24Tuesday, JAMARCUS Moser [address] [place] [address] Licensed Practical Nurse Family Medicine 01/16/24 02/14/24 documented as of this encounter
--- OUTSIDE RECORDS SUMMARY | 2025-01-21 13:46 | XMS_ITS | Encounter Summary ---
Author Organization [facility] Address [address] [facility] [place] [address] Care Team Providers Care Banana Ripening Room Supervisor Name Role Phone Johnnie Alex MD Unavailable [phone] Johnnie Alex MD Primary Care Provider [phone] Tuesday, Shanti RICKETTS Unavailable [phone] Johnnie Alex MD Unavailable [phone] Johnnie Alex MD Unavailable [phone] Encounter Details Date Type Department Care Team (Late Contact Info) Description 01/13/2023 Abstract [facility] [address] [facility] [facility] 110 [place] [address] Johnnie Alex MD [address] [facility] 110 [place] [address] Social History Tobacco Use Types Packs/Day Years [...] Visit [facility] [address] [facility] 110 [place] [address] Johnnie Alex MD [address] [facility] [place] [address] documented as of this encounter Visit Diagnoses Not on filedocumented in this encounter Care Teams Banana Ripening Room Supervisor Relationship Specialty Start Date End Date Johnnie Alex MD [address] [facility] [place] [address] PCP - ACO Reach 12/16/22 08/30/24 Johnnie Alex MD [address] [facility] [place] [address] PCP - General Internal Medicine 01/10/23 Johnnie Alex MD [address] [facility] [place] [address] PCP - Devoted 07/25/24 Johnnie Alex MD [address] [facility] [place] [address] PCP - ACO Reach 09/07/24 10/25/24Tuesday, JAMARCUS Moser [address] [place] [address] Licensed Practical Nurse Family Medicine 01/16/24 02/14/24 documented as of this encounter
--- OUTSIDE RECORDS SUMMARY | 2025-01-21 13:46 | XMS_ITS | Encounter Summary ---
Author Organization [facility] Address [address] [facility] [place] [address] Care Team Providers Care Prep Manager Name Role Phone Johnnie Alex MD Unavailable [phone] Johnnie Alex MD Primary Care Provider [phone] Tuesday, Shanti RICKETTS Unavailable [phone] Johnnie Alex MD Unavailable [phone] Johnnie Alex MD Unavailable [phone] Encounter Details Date Type Department Care Team (Late st Contact Info) Description 06/06/2023 Abstract [facility] 112 [facility] 110 [place] [address] Johnnie Alex MD 112 [facility] 110 [place] [address] Social History Tobacco Use Types Packs/Day Years [...] How often do you attend chur or yazidi services? Never 04/13/2023 Do you belong to any clubs o r organizations such as worship groups, unions, fraternal or athletic groups, or [...] Recorded Patient Health Questionnaire-2 Score 0 01/12/2023 [facility] of Occupat ional Health - Occupational [...] Visit [facility] [address] [facility] 110 [place] [address] Johnnie Alex MD [address] [facility] 110 [place] [address] documented as of this encounter Visit Diagnoses Not on filedocumented in this encounter Care Teams Prep Manager Relationship Specialty Start Date End Date Johnnie Alex MD [address] [facility] 110 [place] [address] PCP - ACO Reach 12/16/22 08/30/24 Johnnie Alex MD [address] [facility] 110 [place] [address] PCP - General Internal Medicine 01/10/23 Johnnie Alex MD [address] [facility] [address] [place] [address] PCP - Devoted 07/25/24 Johnnie Alex MD [address] [facility] [address] [place] [address] PCP - ACO Reach 09/07/24 10/25/24Tuesday, JAMARCUS Moser [address] [place] [address] Licensed Practical Nurse Family Medicine 01/16/24 02/14/24 documented as of this encounter
--- OUTSIDE RECORDS SUMMARY | 2025-01-21 13:46 | XMS_ITS | Encounter Summary ---
Author Organization [facility] Address [address] [facility] [place] [address] Care Team Providers Care Summer Nanny Name Role Phone Johnnie Alex MD Unavailable [phone] Johnnie Alex MD Primary Care Provider [phone] Tuesday, Shanti RICKETTS Unavailable [phone] Johnnie Alex MD Unavailable [phone] Johnnie Alex MD Unavailable [phone] Encounter Details Date Type Department Care Team (Late st Contact Info) Description 05/31/2023 Abstract [facility] 112 [facility] 110 [place] [address] Johnnie Alex MD 112 [facility] 110 [place] [address] Social History Tobacco Use Types Packs/Day Years [...] any clubs o r organizations such as yazidism groups, unions, fraternal or athletic groups, or [...] Recorded Patient Health Questionnaire-2 Score 0 01/12/2023 [facility] of Occupat ional Health - Occupational Stress [...] place to sleep or slept in a longterm (including now)? No 04/13/2023 Comments Unknown Sex [...] [facility] [address] [facility] 110 [place] [address] Johnnie Alex MD [address] [facility] 110 [place] [address] documented as of this encounter Visit Diagnoses Not on filedocumented in this encounter Care Teams Summer Nanny Relationship Specialty Start Date End Date Johnnie Alex MD [address] [facility] 110 [place] [address] PCP - ACO Reach 12/16/22 08/30/24 Johnnie Alex MD [address] [facility] 110 [place] [address] PCP - General Internal Medicine 01/10/23 Johnnie Alex MD [address] [facility] [address] [place] [address] PCP - Devoted 07/25/24 Johnnie Alex MD [address] [facility] [place] [address] PCP - ACO Reach 09/07/24 10/25/24Tuesday, JAMARCUS Moser [address] [place] [address] Licensed Practical Nurse Family Medicine 01/16/24 02/14/24 documented as of this encounter
--- OUTSIDE RECORDS SUMMARY | 2025-01-21 13:46 | XMS_ITS | Encounter Summary ---
Author Organization [facility] Address [address] [place] [address] Phone Care Team Providers Care Senior Market Intelligence Consultant Name Role Phone Johnnie Alex MD Primary Care Provider [phone] Encounter Details Date Type Department Care Team (Late st Contact Info) Description 04/30/2024 Scanned Document [facility] [address] [place] [phone] Scanning, Generic Provider Social History Tobacco Use [...] Description 05/27/2025 12:30 PM EST Office Visit [facility] 703 [facility] 250 [place] [address] Felicia Silvestre MD 917 [facility] 130 [place], [place] [address] documented as of this encounter Procedures Procedure Name Priority Date/Time Associated Diagnosis Comments OUTSIDE LAB SCAN 04/30/2024 documented in this encounter Results * OUTSIDE LAB SCAN (04/30/2024) Narrative 04/30/2024 Ordered by an unspecified provider. us Generic Provider Scanning OUTSIDE SCAN Final Result documented in this encounter Visit Diagnoses Not on filedocumented in this encounter Additional Health Concerns Assessment Noted Time A fall risk assessment has been complete d for the patient 05/30/2023 11:24 AM EST documented as of this encounter Care Teams Senior Market Intelligence Consultant Relationship Specialty Start Date End Date Johnnie Alex MD 112 [facility] 110 [place] [address] PCP - General 01/10/23 documented as of this encounter
--- OUTSIDE RECORDS SUMMARY | 2025-01-21 13:46 | XMS_ITS | Encounter Summary ---
Author Organization [facility] Address [address] [facility] [place] [address] Care Team Providers Care Apprise Counselor Name Role Phone Johnnie Alex MD Unavailable [phone] Johnnie Alex MD Primary Care Provider [phone] Tuesday, Shanti RICKETTS Unavailable [phone] Johnnie Alex MD Unavailable [phone] Johnnie Alex MD Unavailable [phone] Encounter Details Date Type Department Care Team (Late st Contact Info) Description 01/19/2024 Abstract [facility] [address] [facility] [address] [place] [id number] Johnnie Alex MD [address] [facility] [address] [place] [address] Social History Tobacco Use Types Packs/Day Years [...] How often do you attend chur or confucianism services? Never 04/13/2023 Do you belong to any clubs o r organizations such as denominational groups, unions, fraternal or athletic groups, or [...] Recorded Patient Health Questionnaire-2 Score 0 01/16/2024 [facility] - Occupational [...] place to sleep or slept in a prison (including now)? No 04/13/2023 Comments Unknown Sex [...] Office Visit [facility] [address] [facility] [address] [place] [address] Johnnie Alex MD [address] [facility] [address] [place] [address] documented as of this encounter Visit Diagnoses Not on filedocumented in this encounter Additional Health Concerns Assessment Noted Time PHQ-9 Depression Total Score: 0 01/16/20 8:00 AM EDT documented as of this encounter Care Teams Apprise Counselor Relationship Specialty Start Date End Date Johnnie Alex MD [address] [facility] [address] [place] [address] PCP - ACO Reach 12/16/22 08/30/24 Johnnie Alex MD [address] [facility] [address] [place] [address] PCP - General Internal Medicine 01/10/23 Johnnie Alex MD [address] [facility] [address] [place] [address] PCP - Devoted 07/25/24 Johnnie Alex MD [address] [facility] [address] [place] [address] PCP - ACO Reach 09/07/24 10/25/24Tuesday, JAMARCUS Moser [address] [place] [address] Licensed Practical Nurse Family Medicine 01/16/24 02/14/24 documented as of this encounter
--- NOTE | 2025-01-21 13:47 | MM_ITS ---
Patient Name: RAÚL SAMANIEGO MR#: [id number] : 1955 Exam Date: 01/21/2025 Ordering Doctor: DR MISHA DINH M.D. RADIOLOGY REPORT PROCEDURE: MM TOMOSYNTHESIS SCREENING BI COMPARISON: MM TOMOSYNTHESIS SCREENING BI, 12/26/2023. MG MAMM SCREEN 3D ADAM CAD, 01/11/2022. MG MAMM SCREEN ADAM W CAD, 09/02/2020. MG MAMM ADAM SCRN W CAD DIG, 03/27/2013. INDICATIONS: Screening Calculator Name NCI Breast Cancer Risk Assessment Tool 5 Year Breast Cancer Risk 1.90% Lifetime Breast Cancer Risk 6.20% Personal Breast Cancer No Personal Ovarian Cancer No Treatments None Family Cancers Grandmother-maternal with lymphoma cancer at age 45; Grandfather-paternal with stomach cancer at age 50; Brother with skin cancer at age 62; Brother with colon cancer at age 61; Mother with esophageal cancer at age 82. LOCATION: [facility] BREAST COMPOSITION: There are scattered areas of fibroglandular density. FINDINGS: DIAGNOSTIC CATEGORY 1--NEGATIVE. RIGHT BREAST: No significant suspicious finding. LEFT BREAST: No significant suspicious finding. RECOMMENDATIONS: ROUTINE MAMMOGRAM AND CLINICAL EVALUATION IN 12 MONTHS. PLEASE NOTE: A NORMAL MAMMOGRAM DOES NOT EXCLUDE THE POSSIBILITY OF BREAST CANCER. A CLINICALLY SUSPICIOUS PALPABLE LUMP SHOULD BE BIOPSIED. Dictated by: Klaus Gunn DO on 01/21/2025 at 16:27 Approved by: Klaus Gunn DO on 01/21/2025 at 16:28
== END 2025-01-21 13:44 | disposition home or self-care (01) ==
LOC: MAMMO 13:43
PROVIDERS: PCP Internal Medicine; Visit Provider Internal Medicine
DX: Z12.31 Encounter for screening mammogram for malignant neoplasm of breast (principal); Z80.0 Family history of malignant neoplasm of digestive organs; Z80.7 Family history of other malignant neoplasms of lymphoid, hematopoietic and related tissues; Z80.8 Family history of malignant neoplasm of other organs or systems
CPT/HCPCS: 77063; 77067